=== PATIENT | male | born 1940 | race Caucasian/White ===

== ENCOUNTER → 2018-02-04 08:02 | Outpatient (CLI) | payer MEDICARE, OTHER, SELFPAY ==
[2018-02-04 09:41] LABS: Hemoglobin A1C% w Est Avg Glu 6.3 % (4.0-6.0)
== END ==
PROVIDERS: PCP Family Medicine; Visit Provider Family Medicine
DX: E11.42 Type 2 diabetes mellitus with diabetic polyneuropathy (principal)
CPT/HCPCS: 36415; 83036

== ENCOUNTER → 2018-04-15 07:59 | Outpatient (CLI) | payer MEDICARE, OTHER, SELFPAY ==
[2018-04-15 09:23] LABS: Hemoglobin A1C% w Est Avg Glu 6.8 % (4.0-6.0)
== END ==
PROVIDERS: Family Provider Ophthalmology; PCP Family Medicine; Visit Provider Family Medicine
DX: E11.42 Type 2 diabetes mellitus with diabetic polyneuropathy (principal)
CPT/HCPCS: 36415; 83036

== ENCOUNTER → 2018-07-27 13:12 | Outpatient (CLI) | payer MEDICARE, OTHER, SELFPAY | PROVIDERS: Family Provider Ophthalmology; PCP Family Medicine; Visit Provider Family Medicine | DX: L97.523 Non-pressure chronic ulcer of other part of left foot with necrosis of muscle (principal); E11.621 Type 2 diabetes mellitus with foot ulcer; L08.9 Local infection of the skin and subcutaneous tissue, unspecified | CPT/HCPCS: 11043; 36415; 73630; 80053; 83036; 84134; 85025; 85651; 86140; 87070; 87075; 87205; 99213 ==

== ENCOUNTER → 2018-07-27 14:35 | Outpatient (CLI) | payer MEDICARE, OTHER, SELFPAY ==
--- NOTE | 2018-07-27 | DI.RAD.S_ITS ---
PROCEDURE: XR FOOT LT MIN 3V INDICATIONS: EVAL TECHNIQUE: 3 views of the foot were acquired. COMPARISON: [facility], , FOOT 3V LEFT, 08/19/2014, 16:42. FINDINGS: Bones: There is cortical erosion involving the plantar aspect of fifth metatarsal head is suspicious for osteomyelitis in this area. Osteoarthritic changes without focal joint are noted. Soft tissues: No tibiotalar joint effusion. Achilles tendon appears normal. Ill-defined calcification adjacent to fifth metatarsal head plantar and lateral aspect is seen. Soft tissue swelling over plantar lateral aspect of fifth MTP joint is also seen. IMPRESSION: Findings are concerning for osteomyelitis involving plantar aspect of fifth metatarsal head. No defined soft tissue calcification adjacent to lateral and plantar aspect of fifth metatarsal head, and may represent soft tissue calcification secondary to injury in this area. No radiopaque foreign body is noted. Dictated by: Molina Barrett M.D. on 07/27/2018 at 15:50 Approved by: Molina Barrett M.D. on 07/27/2018 at 15:56
[2018-07-27 15:46] LABS: Add Manual Diff / Slide Review NO; Basophils Percent Auto 0.9 % (0-2); Eosinophils Percent Auto 6.5 % (2-4); Hematocrit 41.8 % (41-53); Hemoglobin 13.8 g/dL (13.5-17.5); Lymphocytes Percent Auto 19.6 % (25-40); Mean Corpuscular HGB Conc 33.1 % (30-36); Mean Corpuscular Hemoglobin 30.1 PG (26-34); Mean Corpuscular Volume 90.9 fL (80-100); Monocytes Percent Auto 10.1 % (3-14); Neutrophils Absolute Auto 5000 /uL (1500-7000); Neutrophils Percent Auto 62.9 % (50-75); Platelet Count 230 X10^3/uL (150-400); Red Cell Distribution Width 13.8 % (11.6-14.8); White Blood Cell Count 7.9 X10^3/uL (4.5-11.0)
[2018-07-27 15:52] LABS: Hemoglobin A1C% w Est Avg Glu 6.5 % (4.0-6.0)
[2018-07-27 16:06] LABS: Alanine Aminotransferase 30 IU/L (21-72); Albumin 4.4 g/dL (3.5-5.0); Albumin Globulin Ratio 1.6 (1.0-2.8); Alkaline Phosphatase 95 U/L (38-126); Aspartate Aminotransferase 21 IU/L (17-59); Bilirubin Total 0.6 mg/dL (0.2-1.3); Blood Urea Nitrogen 27 mg/dL (9-20); C-Reactive Protein Quant 2.9 mg/dL (<1.0); Calcium 9.9 mg/dL (8.4-10.2); Carbon Dioxide 27 mmol/L (22-32); Chloride 102 mmol/L (98-107); Estimated Glomerular Filt Rate > 60.0 mL/min (>60); Globulin 2.8 g/dL (1.7-4.1); Glucose 94 mg/dL (80-110); HEMOLYSIS < 15 (0-50); Potassium 4.7 mmol/L (3.4-5.1); Sodium 142 mmol/L (137-145); Total Protein 7.2 g/dL (6.3-8.2)
[2018-07-27 16:11] LABS: Prealbumin 20.5 mg/dL (17.6-36.0)
[2018-07-27 16:35] LABS: Erythrocyte Sedimentation Rate 17 MM/HR (0-15)
== END ==
PROVIDERS: Family Provider Ophthalmology; PCP Family Medicine; Visit Provider Family Medicine
DX: E11.621 Type 2 diabetes mellitus with foot ulcer (principal)
CPT/HCPCS: 36415; 73630; 80053; 83036; 84134; 85025; 85651; 86140

== ENCOUNTER → 2018-07-30 09:23 | Outpatient (CLI) | payer MEDICARE, OTHER, SELFPAY | PROVIDERS: Family Provider Ophthalmology; PCP Family Medicine; Visit Provider Family Medicine | DX: E11.621 Type 2 diabetes mellitus with foot ulcer (principal); L97.523 Non-pressure chronic ulcer of other part of left foot with necrosis of muscle; L08.9 Local infection of the skin and subcutaneous tissue, unspecified; M86.172 Other acute osteomyelitis, left ankle and foot | CPT/HCPCS: 11043; 99213 ==

== ENCOUNTER → 2018-08-03 08:44 | Outpatient (CLI) | payer MEDICARE, OTHER, SELFPAY | PROVIDERS: Family Provider Ophthalmology; PCP Family Medicine; Visit Provider Family Medicine | DX: E11.621 Type 2 diabetes mellitus with foot ulcer (principal); L97.525 Non-pressure chronic ulcer of other part of left foot with muscle involvement without evidence of necrosis; M86.172 Other acute osteomyelitis, left ankle and foot | CPT/HCPCS: 99213 ==

== ENCOUNTER → 2018-08-10 09:41 | Outpatient (CLI) | payer MEDICARE, OTHER, SELFPAY | PROVIDERS: Family Provider Ophthalmology; PCP Family Medicine; Visit Provider Family Medicine | DX: E11.621 Type 2 diabetes mellitus with foot ulcer (principal); L97.525 Non-pressure chronic ulcer of other part of left foot with muscle involvement without evidence of necrosis | CPT/HCPCS: 11042 ==

== ENCOUNTER → 2018-08-12 14:37 | Outpatient (CLI) | payer MEDICARE, OTHER, SELFPAY | PROVIDERS: Family Provider Ophthalmology; PCP Family Medicine; Visit Provider Family Medicine | DX: E11.621 Type 2 diabetes mellitus with foot ulcer (principal); L97.523 Non-pressure chronic ulcer of other part of left foot with necrosis of muscle | CPT/HCPCS: 11043 ==

== ENCOUNTER → 2018-08-17 08:39 | Outpatient (CLI) | payer MEDICARE, OTHER, SELFPAY | PROVIDERS: Family Provider Ophthalmology; PCP Family Medicine; Visit Provider Podiatrist Primary Podiatric Medicine | DX: E11.621 Type 2 diabetes mellitus with foot ulcer (principal); L97.525 Non-pressure chronic ulcer of other part of left foot with muscle involvement without evidence of necrosis | CPT/HCPCS: 97597 ==

== ENCOUNTER → 2018-08-24 09:31 | Outpatient (CLI) | payer MEDICARE, OTHER, SELFPAY | PROVIDERS: Family Provider Ophthalmology; PCP Family Medicine; Visit Provider Family Medicine | DX: E11.621 Type 2 diabetes mellitus with foot ulcer (principal); L97.525 Non-pressure chronic ulcer of other part of left foot with muscle involvement without evidence of necrosis; L08.9 Local infection of the skin and subcutaneous tissue, unspecified; B96.5 Pseudomonas (aeruginosa) (mallei) (pseudomallei) as the cause of diseases classified elsewhere | CPT/HCPCS: 11043; 87070; 87075; 87205; 99213 ==

== ENCOUNTER → 2018-08-26 07:04 | Outpatient (CLI) | payer MEDICARE, OTHER, SELFPAY ==
--- NOTE | 2018-08-26 | DI.MRI.S_ITS ---
PROCEDURE: MR FOOT LT WO/W CON INDICATIONS: EVALUATE FOR OSTEOMYELITIS LEFT FIFTH METATARSAL TECHNIQUE: Noncontrast coronal T1 spin echo and STIR, sagittal T1 spin echo with fat saturation and STIR, axial T1 spin echo and T2 fast spin echo with fat saturation. After the administration of contrast, axial/sagittal/coronal T1 spin echo with fat saturation through the midfoot and forefoot. COMPARISON: [facility], CR, FOOT 3V LEFT, 08/19/2014, 16:42. [facility], CR, XR FOOT LT MIN 3V, 07/27/2018, 14:46. [facility], MR, FOOT W&WO CONTRAST, 12/30/2016, 16:48. FINDINGS: Image quality: Somewhat degraded by necessity of use of a non-specialized coil T2 cast material precluding smaller [id number] coil technique.. Bones: The visualized bone marrow demonstrates normal signal medially on all sequences but there is elevated fluid signal within the fifth metatarsal head and neck in contrast enhancement that is abnormal within the fifth metatarsal head consistent with osteomyelitis given the soft tissue wound and inflammation lateral to this area. The overlying cortex is not well-visualized by necessity of use of a non-specialized surface coil disallowing small [id number] visualization. No abnormal intraosseous enhancement except at the fifth metatarsal head area best seen laterally. Soft tissues: No soft tissue masses are visualized but there is evidence of cellulitis in the ulceration at the lateral border of the fifth metatarsal area. The scanned muscles demonstrate normal overall bulk and internal signal. Subcutaneous tissues appear normal elsewhere as well. No abnormal soft tissue enhancement except in the area of cutaneous wound lateral aspect of the fifth metatarsal head area. IMPRESSION: An abscess is not seen but there is abnormal edema within and immediately adjacent to the fifth metatarsal head and neck, with associated mid fifth metatarsal head internal enhancement best seen laterally. The findings are highly suggestive of osteomyelitis in an early phase given the overlying soft tissue wound and cutaneous/subcutaneous edema in this area. Prior plain film imaging of the same area is available from 07/27/18. 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 Dictated by: Elmer Ocasio M.D. on 08/26/2018 at 11:01 Approved by: Elmer Ocasio M.D. on 08/26/2018 at 11:24
[2018-08-26 07:36] LABS: Blood Urea Nitrogen 25 mg/dL (9-20); Calcium 9.6 mg/dL (8.4-10.2); Carbon Dioxide 27 mmol/L (22-32); Chloride 104 mmol/L (98-107); Estimated Glomerular Filt Rate > 60.0 mL/min (>60); Glucose 127 mg/dL (80-110); HEMOLYSIS < 15 (0-50); Potassium 4.7 mmol/L (3.4-5.1); Sodium 139 mmol/L (137-145)
[2018-08-26 07:39] LABS: C-Reactive Protein Quant < 0.5 mg/dL (<1.0)
[2018-08-26 08:26] LABS: Erythrocyte Sedimentation Rate 5 MM/HR (0-15)
== END ==
PROVIDERS: Family Provider Ophthalmology; PCP Family Medicine; Visit Provider Family Medicine
DX: E11.621 Type 2 diabetes mellitus with foot ulcer (principal); L97.524 Non-pressure chronic ulcer of other part of left foot with necrosis of bone
CPT/HCPCS: 36415; 73720; 80048; 85651; 86140

== ENCOUNTER → 2018-08-31 14:38 | Outpatient (CLI) | payer MEDICARE, OTHER, SELFPAY | PROVIDERS: Family Provider Ophthalmology; PCP Family Medicine; Visit Provider Family Medicine | DX: E11.621 Type 2 diabetes mellitus with foot ulcer (principal); L97.525 Non-pressure chronic ulcer of other part of left foot with muscle involvement without evidence of necrosis; E11.40 Type 2 diabetes mellitus with diabetic neuropathy, unspecified; M86.172 Other acute osteomyelitis, left ankle and foot | CPT/HCPCS: 11042; 99213 ==

== ENCOUNTER → 2018-08-31 15:25 | Outpatient (CLI) | payer MEDICARE, OTHER, SELFPAY ==
--- NOTE | 2018-08-31 15:28 | DI.RAD.S_ITS ---
PROCEDURE: XR FOOT LT MIN 3V INDICATIONS: INFECTION OF SKIN TECHNIQUE: 3 views of the foot were acquired. COMPARISON: [facility], MR, MR FOOT LT WO/W CON, 08/26/2018, 7:35. [facility], CR, XR FOOT LT MIN 3V, 07/27/2018, 14:46. [facility], CR, FOOT 3V LEFT, 08/19/2014, 16:42. FINDINGS: Bones: No fractures or dislocations. There is suspicious ostiolysis involving the lateral border of the fifth metatarsal head corresponding to the area of the abnormal contrast enhancement on recent MR scanning performed 08/26/18. The current findings are, in my opinion, suspicious for confirmation of presence of osteomyelitis.. Soft tissues: No tibiotalar joint effusion. Achilles tendon appears normal. IMPRESSION: Please also refer to the report from recent prior MR scanning 08/26/18. It is highly likely based on the imaging findings of that study and the current examination showing lateral ostiolysis to a mild degree involving the fifth metatarsal head that osteomyelitis is currently present in that area. Dictated by: Elmer Ocasio M.D. on 08/31/2018 at 16:05 Approved by: Elmer Ocasio M.D. on 08/31/2018 at 16:07
== END ==
PROVIDERS: PCP Family Medicine; Visit Provider Family Medicine
DX: E11.621 Type 2 diabetes mellitus with foot ulcer (principal); L97.524 Non-pressure chronic ulcer of other part of left foot with necrosis of bone; L08.9 Local infection of the skin and subcutaneous tissue, unspecified
CPT/HCPCS: 11042; 73630

== ENCOUNTER → 2018-09-07 09:59 | Outpatient (CLI) | payer MEDICARE, OTHER, SELFPAY | PROVIDERS: PCP Family Medicine; Visit Provider Family Medicine | DX: E11.621 Type 2 diabetes mellitus with foot ulcer (principal); L97.524 Non-pressure chronic ulcer of other part of left foot with necrosis of bone; M86.172 Other acute osteomyelitis, left ankle and foot | CPT/HCPCS: 11042; 87070; 87075; 87077; 87147; 87186; 87205 ==

== ENCOUNTER → 2018-09-14 08:29 | Outpatient (CLI) | payer MEDICARE, OTHER, SELFPAY | PROVIDERS: PCP Family Medicine; Visit Provider Family Medicine | DX: E11.621 Type 2 diabetes mellitus with foot ulcer (principal); L97.525 Non-pressure chronic ulcer of other part of left foot with muscle involvement without evidence of necrosis; M86.172 Other acute osteomyelitis, left ankle and foot | CPT/HCPCS: 11042; 93922 ==

== ENCOUNTER → 2018-09-21 08:49 | Outpatient (CLI) | payer MEDICARE, OTHER, SELFPAY | PROVIDERS: PCP Family Medicine; Visit Provider Family Medicine | DX: E11.621 Type 2 diabetes mellitus with foot ulcer (principal); L97.525 Non-pressure chronic ulcer of other part of left foot with muscle involvement without evidence of necrosis; M86.172 Other acute osteomyelitis, left ankle and foot | CPT/HCPCS: 11042 ==

== ENCOUNTER → 2018-09-28 09:11 | Outpatient (CLI) | payer MEDICARE, OTHER, SELFPAY ==
[2018-09-28 11:45] LABS: Erythrocyte Sedimentation Rate 5 MM/HR (0-15)
[2018-09-28 11:53] LABS: C-Reactive Protein Quant < 0.5 mg/dL (<1.0)
== END ==
PROVIDERS: PCP Family Medicine; Visit Provider Family Medicine
DX: E11.621 Type 2 diabetes mellitus with foot ulcer (principal); L97.525 Non-pressure chronic ulcer of other part of left foot with muscle involvement without evidence of necrosis; M86.172 Other acute osteomyelitis, left ankle and foot
CPT/HCPCS: 11042; 36415; 85651; 86140

== ENCOUNTER → 2018-10-05 08:41 | Outpatient (CLI) | payer MEDICARE, OTHER, SELFPAY | PROVIDERS: PCP Family Medicine; Visit Provider Family Medicine | DX: E11.621 Type 2 diabetes mellitus with foot ulcer (principal); L97.524 Non-pressure chronic ulcer of other part of left foot with necrosis of bone; M86.172 Other acute osteomyelitis, left ankle and foot | CPT/HCPCS: 11044; 87070; 87075; 87077; 87147; 87186; 87205 ==

== ENCOUNTER → 2018-10-12 14:28 | Outpatient (CLI) | payer MEDICARE, OTHER, SELFPAY | PROVIDERS: PCP Family Medicine; Visit Provider Family Medicine | DX: E11.621 Type 2 diabetes mellitus with foot ulcer (principal); L97.524 Non-pressure chronic ulcer of other part of left foot with necrosis of bone; M86.672 Other chronic osteomyelitis, left ankle and foot; B95.7 Other staphylococcus as the cause of diseases classified elsewhere | CPT/HCPCS: 11042; 99214 ==

== ENCOUNTER → 2018-10-19 08:22 | Outpatient (CLI) | payer MEDICARE, OTHER, SELFPAY | PROVIDERS: PCP Family Medicine; Visit Provider Family Medicine | DX: E11.621 Type 2 diabetes mellitus with foot ulcer (principal); L97.526 Non-pressure chronic ulcer of other part of left foot with bone involvement without evidence of necrosis; M86.672 Other chronic osteomyelitis, left ankle and foot; B95.7 Other staphylococcus as the cause of diseases classified elsewhere | CPT/HCPCS: 11042 ==

== ENCOUNTER → 2018-10-26 08:34 | Outpatient (CLI) | payer MEDICARE, OTHER, SELFPAY | PROVIDERS: PCP Family Medicine; Visit Provider Family Medicine | DX: E11.621 Type 2 diabetes mellitus with foot ulcer (principal); L97.524 Non-pressure chronic ulcer of other part of left foot with necrosis of bone; M86.672 Other chronic osteomyelitis, left ankle and foot; B95.7 Other staphylococcus as the cause of diseases classified elsewhere | CPT/HCPCS: 11043 ==

== ENCOUNTER → 2018-11-02 08:49 | Outpatient (CLI) | payer MEDICARE, OTHER, SELFPAY | PROVIDERS: PCP Family Medicine; Visit Provider Family Medicine | DX: E11.621 Type 2 diabetes mellitus with foot ulcer (principal); L97.526 Non-pressure chronic ulcer of other part of left foot with bone involvement without evidence of necrosis; M86.672 Other chronic osteomyelitis, left ankle and foot; B95.7 Other staphylococcus as the cause of diseases classified elsewhere | CPT/HCPCS: 11043 ==

== ENCOUNTER → 2018-11-05 12:06 | Outpatient (CLI) | payer MEDICARE, OTHER, SELFPAY ==
[2018-11-05 15:33] LABS: BUN Creatinine Ratio 23.6 (6-22); Blood Urea Nitrogen 26 mg/dL (9-20); Calcium 9.5 mg/dL (8.4-10.2); Carbon Dioxide 24 mmol/L (22-32); Chloride 102 mmol/L (98-107); Estimated Glomerular Filt Rate > 60.0 mL/min (>60); Glucose 76 mg/dL (80-110); HEMOLYSIS 29 (0-50); Potassium 4.8 mmol/L (3.4-5.1); Sodium 137 mmol/L (137-145)
== END ==
PROVIDERS: PCP Family Medicine; Visit Provider Family Medicine
DX: L08.9 Local infection of the skin and subcutaneous tissue, unspecified (principal)
CPT/HCPCS: 36415; 80048

== ENCOUNTER → 2018-11-10 08:37 | Outpatient (CLI) | payer MEDICARE, OTHER, SELFPAY | PROVIDERS: PCP Family Medicine; Visit Provider Family Medicine | DX: E11.621 Type 2 diabetes mellitus with foot ulcer (principal); L97.526 Non-pressure chronic ulcer of other part of left foot with bone involvement without evidence of necrosis; B95.7 Other staphylococcus as the cause of diseases classified elsewhere; M86.672 Other chronic osteomyelitis, left ankle and foot | CPT/HCPCS: 11042; 99214 ==

== ENCOUNTER → 2018-11-17 08:53 | Outpatient (CLI) | payer MEDICARE, OTHER, SELFPAY | PROVIDERS: PCP Family Medicine; Visit Provider Family Medicine | DX: E11.621 Type 2 diabetes mellitus with foot ulcer (principal); E11.40 Type 2 diabetes mellitus with diabetic neuropathy, unspecified; L97.525 Non-pressure chronic ulcer of other part of left foot with muscle involvement without evidence of necrosis; M86.672 Other chronic osteomyelitis, left ankle and foot; B95.7 Other staphylococcus as the cause of diseases classified elsewhere | CPT/HCPCS: 11042 ==

== ENCOUNTER → 2018-11-18 09:25 | Outpatient (CLI) | payer MEDICARE, OTHER, SELFPAY ==
--- NOTE | 2018-11-18 09:31 | DI.RAD.S_ITS ---
PROCEDURE: XR CHEST 2V INDICATIONS: PRE-HYPERBARIC TREATMENT. EVAL FOR BLUB. TECHNIQUE: 2 views of the chest were acquired. COMPARISON: None. FINDINGS: Surgical changes and devices: None. Lungs and pleura: Lungs are clear. No pleural effusions or pneumothorax. Mediastinum: Mediastinal contours are normal. Heart size is normal. Bones and chest wall: No suspicious bony abnormalities. Soft tissues appear unremarkable. IMPRESSION: No acute disease Dictated by: Prashant Knox M.D. on 11/18/2018 at 12:29 Approved by: Prashant Knox M.D. on 11/18/2018 at 12:30
[2018-11-18 11:14] LABS: Cholesterol 184 mg/dL (140-199); HDL Cholesterol 45 mg/dL (40-60); LDL Cholesterol Calculated 118 mg/dL (<100); Magnesium 1.8 mg/dL (1.6-2.3); Triglycerides 103 mg/dL (35-150)
[2018-11-18 11:44] LABS: Thyroid Stimulating Hormone 0.99 uIU/mL (0.47-4.68)
== END ==
PROVIDERS: PCP Family Medicine; Referring Provider Family Medicine; Visit Provider Internal Medicine Cardiovascular Disease
DX: E11.621 Type 2 diabetes mellitus with foot ulcer (principal); E78.2 Mixed hyperlipidemia; I48.1 Persistent atrial fibrillation
CPT/HCPCS: 36415; 71046; 80061; 83735; 84443

== ENCOUNTER → 2018-11-24 09:05 | Outpatient (CLI) | payer MEDICARE, OTHER, SELFPAY | PROVIDERS: PCP Family Medicine; Visit Provider Family Medicine | DX: E11.621 Type 2 diabetes mellitus with foot ulcer (principal); L97.526 Non-pressure chronic ulcer of other part of left foot with bone involvement without evidence of necrosis; M86.672 Other chronic osteomyelitis, left ankle and foot; B95.7 Other staphylococcus as the cause of diseases classified elsewhere | CPT/HCPCS: 11042 ==

== ENCOUNTER → 2018-12-01 08:54 | Outpatient (CLI) | payer MEDICARE, OTHER, SELFPAY | PROVIDERS: PCP Family Medicine; Visit Provider Family Medicine | DX: E11.621 Type 2 diabetes mellitus with foot ulcer (principal); L97.526 Non-pressure chronic ulcer of other part of left foot with bone involvement without evidence of necrosis; M86.672 Other chronic osteomyelitis, left ankle and foot; B95.7 Other staphylococcus as the cause of diseases classified elsewhere | CPT/HCPCS: 99213 ==

== ENCOUNTER → 2018-12-03 10:44 | Outpatient (CLI) | payer MEDICARE, OTHER, SELFPAY | PROVIDERS: PCP Family Medicine; Visit Provider Family Medicine | DX: E11.621 Type 2 diabetes mellitus with foot ulcer (principal); L97.526 Non-pressure chronic ulcer of other part of left foot with bone involvement without evidence of necrosis | CPT/HCPCS: 99183; G0277 ==

== ENCOUNTER → 2018-12-04 14:54 | Outpatient (CLI) | payer MEDICARE, OTHER, SELFPAY | PROVIDERS: PCP Family Medicine; Visit Provider Family Medicine | DX: E11.621 Type 2 diabetes mellitus with foot ulcer (principal); L97.524 Non-pressure chronic ulcer of other part of left foot with necrosis of bone; M86.672 Other chronic osteomyelitis, left ankle and foot | CPT/HCPCS: 99183; G0277 ==

== ENCOUNTER → 2018-12-07 13:41 | Outpatient (CLI) | payer MEDICARE, OTHER, SELFPAY | PROVIDERS: PCP Family Medicine; Visit Provider Family Medicine | DX: E11.621 Type 2 diabetes mellitus with foot ulcer (principal); L97.524 Non-pressure chronic ulcer of other part of left foot with necrosis of bone; M86.672 Other chronic osteomyelitis, left ankle and foot | CPT/HCPCS: 99183; G0277 ==

== ENCOUNTER → 2018-12-08 08:51 | Outpatient (CLI) | payer MEDICARE, OTHER, SELFPAY ==
--- NOTE | 2018-12-08 | DI.RAD.S_ITS ---
PROCEDURE: XR FOOT LT MIN 3V INDICATIONS: ,OSTEOMYELITIS TECHNIQUE: 3 views of the foot were acquired. COMPARISON: [facility], CR, XR FOOT LT MIN 3V, 07/27/2018, 14:46. [facility], MR, MR FOOT LT WO/W CON, 08/26/2018, 7:35. [facility], CR, XR FOOT LT MIN 3V, 08/31/2018, 15:31. FINDINGS: Severe subluxed appearance/dislocation of the fifth MTP joint. No fracture identified. There is overlying soft tissue swelling. There is mild cortical lucency and irregularity although this appears grossly unchanged to mildly improved in bony mineralization since 08/31/18. Diffuse interphalangeal joint degeneration. First MTP osteoarthritis. Posterior calcaneal spurring. Diffuse hindfoot and midfoot degenerative spurring and sclerosis. IMPRESSION: No definite further progression in lytic bone destruction of the fifth metatarsal head. There is suggestion of increasing bone mineralization, and improved cortical definition since the prior study. Overlying soft tissue swelling. Severe subluxation/dislocation of the fifth MTP joint. Dictated by: Prashant Knox M.D. on 12/08/2018 at 15:28 Approved by: Prashant Knox M.D. on 12/08/2018 at 15:32
--- NOTE | 2018-12-08 | DI.ECHO.S_ITS ---
[facility]---------+ [facility] +---------+ : : [address] : : : : [id number] : : : : Phone: [phone]+ Echocardiogram Report + + :Name: EFREN KELLER Study Date: 12/08/2018 Height: 76 in : [facility] Weight: 243 lb : : Gender: Male BSA: 2.4 m2 : :: 1940 Age: 78 yrs BP: 135/80 mmHg: :Reason For Study: Atrial fibrillation : :Ordering Physician: Aleksandra : :Balwinder Performed By: Kimber Page : + + Interpretation Summary The left ventricle is normal in size. The ejection fraction is estimated to be 50-55%. The right ventricle is mildly dilated. Right ventricular systolic function is at the lower limits of normal. There is mild tricuspid regurgitation. Compared to the prior echo exam, there has been no change in TR severity. The right ventricular systolic pressure is estimated to be at least 33 mmHg based on an estimated right atrial pressure of 3 mm Hg. The ascending aorta is mildly enlarged. 3.7 cm in diameter. In August 2014 it was about 3.5 cm. The patient was in atrial fibrillation with heart rates between 64-90 bpm during the exam. In comparison to previous study, atrial for ablation has replaced sinus rhythm. Procedure: A two-dimensional transthoracic echocardiogram with color flow and Doppler was performed. The study quality was technically adequate. Comparison is made with the echocardiogram of 08/31/2014. The patient was in atrial fibrillation with heart rates between 64-90 bpm during the exam. Left Ventricle: The left ventricle is normal in size. Left ventricular wall thickness is borderline increased. There is no thrombus. The ejection fraction is estimated to be 50-55%. Septal motion is consistent with conduction abnormality. Diastolic function could not be accurately assessed due to atrial fibrillation. Right Ventricle: The right ventricle is mildly dilated. Right ventricular systolic function is at the lower limits of normal. Atria: Both atria are severely dilated. Both atria have significantly increased in size since the prior echo exam. There is no Doppler evidence for an interatrial shunt. Mitral Valve: There is mild mitral annular calcification. There is mild mitral regurgitation. Aortic Valve: The aortic valve is trileaflet. The aortic valve opens well. The aortic valve is slightly calcified. There is no aortic valve stenosis. There is trace aortic regurgitation. Tricuspid Valve: The tricuspid valve is normal. There is mild tricuspid regurgitation. The right ventricular systolic pressure is estimated to be at least 33 mmHg based on an estimated right atrial pressure of 3 mm Hg. Compared to the prior echo exam, there has been no change in TR severity. Pulmonic Valve: The pulmonic valve is not well visualized. There is trace pulmonic regurgitation. Great Vessels: The aortic root is normal size. The ascending aorta is mildly enlarged. The pulmonary artery is not well visualized, but is probably normal size. The IVC is of normal diameter and collapses greater than 50% with a sniff. This suggests a low right atrial pressure of 3 mm Hg. Pericardium/ Pleura There is no pericardial effusion. There is no pleural effusion. MMode/2D Measurements & Calculations LVIDd: 5.2 cm LVOT diam: 2.5 cm LVIDs: 3.7 cm Ao root diam: 3.6 cm FS: 29.5 % asc Aorta Diam: 3.7 cm EPSS: 0.60 cm IVSd: 1.1 cm LVPWd: 0.99 cm LV alfonso. diameter/BSA (cm/m^2): 2.2 LV sys. diameter/BSA (cm/m^2): 1.5 LA A2 area: 33.8 cm2 RA long axis: 6.9 cm LA A4 area: 41.3 cm2 RA area: 32.3 cm2 LA length (vol): 8.1 cm RA vol: 128.2 ml LA vol: 147.0 ml RA : 53.3 ml/m2 LA vol index: 61.1 ml/m2 IVC diam: 1.5 cm RVD1 (basal): 5.4 cm RVD2 (mid): 4.5 cm Doppler Measurements & Calculations Ao V2 max: 127.9 cm/sec LVOT Max Nhan: 53.0 cm/sec Ao V2 mean: 93.5 cm/sec LV V1 max P.1 mmHg Ao max P.6 mmHg LV V1 VTI: 10.3 cm Ao mean P.8 mmHg DI(I,D): 1.9 cm2 Ao V2 VTI: 26.5 cm DI(V,D): 2.0 cm2 sev ratio: 0.39 DI indexed to BSA (cm^2/m^2): 0.78 MV E max nhan: 89.8 cm/sec TR max nhan: 273.5 cm/sec Med Peak E' Nhan: 6.7 cm/sec TR max P.9 mmHg E/E' med: 13.4 PA V2 max: 39.3 cm/sec Lat Peak E' Nhan: 11.0 cm/sec PA V2 mean: 25.3 cm/sec E/E' lat: 8.2 PA mean P.29 mmHg E/e' average: 10.8 PA Accel Time: 0.05 sec MV P1/2t: 48.3 msec MV P1/2t max nhan: 90.4 cm/sec SV(LVOT): 49.8 ml MVA(P1/2t): 4.6 cm2 Reading Physician:KATIANA
[2018-12-08 15:54] LABS: Add Manual Diff / Slide Review NO; Basophils Absolute Auto 0 /uL (0-100); Basophils Percent Auto 0.8 % (0-2); Eosinophils Absolute Auto 300 /uL (0-450); Eosinophils Percent Auto 5.3 % (2-4); Hematocrit 40.6 % (41-53); Hemoglobin 13.4 g/dL (13.5-17.5); Lymphocytes Absolute Auto 1600 /uL (1100-4500); Lymphocytes Percent Auto 25.4 % (25-40); Mean Corpuscular Hemoglobin 29.9 PG (26-34); Mean Corpuscular Volume 90.6 fL (80-100); Monocytes Absolute Auto 600 /uL (0-900); Monocytes Percent Auto 9.2 % (3-14); Neutrophils Absolute Auto 3700 /uL (1500-7000); Neutrophils Percent Auto 59.3 % (50-75); Platelet Count 221 X10^3/uL (150-400); Red Blood Cell Count 4.48 X10^6/uL (4.5-5.9); Red Cell Distribution Width 14.9 % (11.6-14.8); White Blood Cell Count 6.2 X10^3/uL (4.5-11.0)
[2018-12-08 16:17] LABS: Alanine Aminotransferase 24 IU/L (21-72); Albumin 4.3 g/dL (3.5-5.0); Albumin Globulin Ratio 1.7 (1.0-2.8); Alkaline Phosphatase 83 U/L (38-126); Aspartate Aminotransferase 21 IU/L (17-59); Bilirubin Total 0.5 mg/dL (0.2-1.3); Blood Urea Nitrogen 24 mg/dL (9-20); C-Reactive Protein Quant 0.6 mg/dL (<1.0); Calcium 9.7 mg/dL (8.4-10.2); Carbon Dioxide 25 mmol/L (22-32); Chloride 105 mmol/L (98-107); Estimated Glomerular Filt Rate > 60.0 mL/min (>60); Globulin 2.6 g/dL (1.7-4.1); Glucose 96 mg/dL (80-110); HEMOLYSIS < 15 (0-50); Potassium 4.8 mmol/L (3.4-5.1); Sodium 139 mmol/L (137-145); Total Protein 6.9 g/dL (6.3-8.2)
[2018-12-08 17:25] LABS: Erythrocyte Sedimentation Rate 11 MM/HR (0-15)
== END ==
PROVIDERS: Family Provider Family Medicine; PCP Family Medicine; Visit Provider Internal Medicine Cardiovascular Disease
DX: I08.1 Rheumatic disorders of both mitral and tricuspid valves (principal); I48.1 Persistent atrial fibrillation; I77.89 Other specified disorders of arteries and arterioles; M86.672 Other chronic osteomyelitis, left ankle and foot; S93.145A Subluxation of metatarsophalangeal joint of left lesser toe(s), initial encounter; E11.621 Type 2 diabetes mellitus with foot ulcer; L97.524 Non-pressure chronic ulcer of other part of left foot with necrosis of bone
CPT/HCPCS: 36415; 73630; 80053; 85025; 85651; 86140; 93306; 97597; G0277

== ENCOUNTER → 2018-12-08 11:30 | Outpatient (CLI) | payer MEDICARE, OTHER, SELFPAY | PROVIDERS: PCP Family Medicine; Visit Provider Family Medicine | DX: E11.621 Type 2 diabetes mellitus with foot ulcer (principal); L97.526 Non-pressure chronic ulcer of other part of left foot with bone involvement without evidence of necrosis; M86.672 Other chronic osteomyelitis, left ankle and foot; B95.7 Other staphylococcus as the cause of diseases classified elsewhere | CPT/HCPCS: 97597; 99183; G0277 ==

== ENCOUNTER → 2018-12-09 12:14 | Outpatient (CLI) | payer MEDICARE, OTHER, SELFPAY | PROVIDERS: PCP Family Medicine; Visit Provider Family Medicine | DX: M86.672 Other chronic osteomyelitis, left ankle and foot (principal) | CPT/HCPCS: 99183; G0277 ==

== ENCOUNTER → 2018-12-10 13:05 | Outpatient (CLI) | payer MEDICARE, OTHER, SELFPAY | PROVIDERS: PCP Family Medicine; Visit Provider Family Medicine | DX: M86.672 Other chronic osteomyelitis, left ankle and foot (principal) | CPT/HCPCS: 99183; G0277 ==

== ENCOUNTER → 2018-12-11 13:19 | Outpatient (CLI) | payer MEDICARE, OTHER, SELFPAY | PROVIDERS: PCP Family Medicine; Visit Provider Family Medicine | DX: E11.621 Type 2 diabetes mellitus with foot ulcer (principal); L97.524 Non-pressure chronic ulcer of other part of left foot with necrosis of bone; M86.672 Other chronic osteomyelitis, left ankle and foot | CPT/HCPCS: 99183; G0277 ==

== ENCOUNTER → 2018-12-15 08:50 | Outpatient (CLI) | payer MEDICARE, OTHER, SELFPAY | PROVIDERS: PCP Family Medicine; Visit Provider Family Medicine | DX: E11.621 Type 2 diabetes mellitus with foot ulcer (principal); L97.526 Non-pressure chronic ulcer of other part of left foot with bone involvement without evidence of necrosis; M86.672 Other chronic osteomyelitis, left ankle and foot | CPT/HCPCS: 97597; 99183; G0277 ==

== ENCOUNTER → 2018-12-16 09:03 | Outpatient (CLI) | payer MEDICARE, OTHER, SELFPAY | PROVIDERS: PCP Family Medicine; Visit Provider Family Medicine | DX: E11.621 Type 2 diabetes mellitus with foot ulcer (principal); L97.524 Non-pressure chronic ulcer of other part of left foot with necrosis of bone; M86.672 Other chronic osteomyelitis, left ankle and foot | CPT/HCPCS: 99183; G0277 ==

== ENCOUNTER → 2018-12-17 08:32 | Outpatient (CLI) | payer MEDICARE, OTHER, SELFPAY | PROVIDERS: PCP Family Medicine; Visit Provider Family Medicine | DX: E11.621 Type 2 diabetes mellitus with foot ulcer (principal); L97.524 Non-pressure chronic ulcer of other part of left foot with necrosis of bone; M86.672 Other chronic osteomyelitis, left ankle and foot | CPT/HCPCS: 99183; G0277 ==

== ENCOUNTER → 2018-12-18 13:02 | Outpatient (CLI) | payer MEDICARE, OTHER, SELFPAY | PROVIDERS: PCP Family Medicine; Visit Provider Family Medicine | DX: E11.621 Type 2 diabetes mellitus with foot ulcer (principal); L97.524 Non-pressure chronic ulcer of other part of left foot with necrosis of bone; M86.672 Other chronic osteomyelitis, left ankle and foot | CPT/HCPCS: 99183; G0277 ==

== ENCOUNTER → 2018-12-21 08:53 | Outpatient (CLI) | payer MEDICARE, OTHER, SELFPAY | PROVIDERS: PCP Family Medicine; Visit Provider Family Medicine | DX: E11.621 Type 2 diabetes mellitus with foot ulcer (principal); L97.524 Non-pressure chronic ulcer of other part of left foot with necrosis of bone; M86.672 Other chronic osteomyelitis, left ankle and foot | CPT/HCPCS: 99183; G0277 ==

== ENCOUNTER → 2018-12-22 10:14 | Outpatient (CLI) | payer MEDICARE, OTHER, SELFPAY | PROVIDERS: PCP Family Medicine; Visit Provider Family Medicine | DX: E11.621 Type 2 diabetes mellitus with foot ulcer (principal); L97.524 Non-pressure chronic ulcer of other part of left foot with necrosis of bone; M86.672 Other chronic osteomyelitis, left ankle and foot | CPT/HCPCS: 11042; 99183; G0277 ==

== ENCOUNTER → 2018-12-24 11:01 | Outpatient (CLI) | payer MEDICARE, OTHER, SELFPAY | PROVIDERS: PCP Family Medicine; Visit Provider Family Medicine | DX: E11.621 Type 2 diabetes mellitus with foot ulcer (principal); L97.524 Non-pressure chronic ulcer of other part of left foot with necrosis of bone; M86.672 Other chronic osteomyelitis, left ankle and foot | CPT/HCPCS: 99183; G0277 ==

== ENCOUNTER → 2018-12-25 08:31 | Outpatient (CLI) | payer MEDICARE, OTHER, SELFPAY | PROVIDERS: PCP Family Medicine; Visit Provider Family Medicine | DX: E11.621 Type 2 diabetes mellitus with foot ulcer (principal); L97.524 Non-pressure chronic ulcer of other part of left foot with necrosis of bone; M86.672 Other chronic osteomyelitis, left ankle and foot | CPT/HCPCS: 99183; G0277 ==

== ENCOUNTER → 2018-12-29 09:36 | Outpatient (CLI) | payer MEDICARE, OTHER, SELFPAY | PROVIDERS: PCP Family Medicine; Visit Provider Family Medicine | DX: E11.621 Type 2 diabetes mellitus with foot ulcer (principal); L97.524 Non-pressure chronic ulcer of other part of left foot with necrosis of bone; M86.672 Other chronic osteomyelitis, left ankle and foot | CPT/HCPCS: 99183; G0277 ==

== ENCOUNTER → 2018-12-30 09:56 | Outpatient (CLI) | payer MEDICARE, OTHER, SELFPAY | PROVIDERS: PCP Family Medicine; Visit Provider Family Medicine | DX: E11.621 Type 2 diabetes mellitus with foot ulcer (principal); L97.524 Non-pressure chronic ulcer of other part of left foot with necrosis of bone; M86.672 Other chronic osteomyelitis, left ankle and foot | CPT/HCPCS: 15275; 99183; 99212; 99213; G0277; Q4132 ==

== ENCOUNTER → 2018-12-31 15:04 | Outpatient (CLI) | payer MEDICARE, OTHER, SELFPAY | PROVIDERS: PCP Family Medicine; Visit Provider Family Medicine | DX: E11.621 Type 2 diabetes mellitus with foot ulcer (principal); L97.524 Non-pressure chronic ulcer of other part of left foot with necrosis of bone; M86.672 Other chronic osteomyelitis, left ankle and foot | CPT/HCPCS: 99183; G0277 ==

== ENCOUNTER → 2019-01-01 09:58 | Outpatient (CLI) | payer MEDICARE, OTHER, SELFPAY | PROVIDERS: PCP Family Medicine; Visit Provider Family Medicine | DX: E11.621 Type 2 diabetes mellitus with foot ulcer (principal); L97.524 Non-pressure chronic ulcer of other part of left foot with necrosis of bone; M86.672 Other chronic osteomyelitis, left ankle and foot | CPT/HCPCS: 99183; G0277 ==

== ENCOUNTER → 2019-01-04 09:09 | Outpatient (CLI) | payer MEDICARE, OTHER, SELFPAY | PROVIDERS: PCP Family Medicine; Visit Provider Family Medicine | DX: E11.621 Type 2 diabetes mellitus with foot ulcer (principal); L97.524 Non-pressure chronic ulcer of other part of left foot with necrosis of bone; M86.672 Other chronic osteomyelitis, left ankle and foot | CPT/HCPCS: 99183; G0277 ==

== ENCOUNTER → 2019-01-05 08:43 | Outpatient (CLI) | payer MEDICARE, OTHER, SELFPAY | PROVIDERS: PCP Family Medicine; Visit Provider Family Medicine | DX: E11.621 Type 2 diabetes mellitus with foot ulcer (principal); L97.524 Non-pressure chronic ulcer of other part of left foot with necrosis of bone; M86.672 Other chronic osteomyelitis, left ankle and foot | CPT/HCPCS: 11042; 99183; 99214; G0277 ==

== ENCOUNTER → 2019-01-06 06:51 | Outpatient (CLI) | payer MEDICARE, OTHER, SELFPAY ==
[2019-01-06 09:24] LABS: BUN Creatinine Ratio 21.7 (6-22); Blood Urea Nitrogen 26 mg/dL (9-20); Calcium 9.3 mg/dL (8.4-10.2); Carbon Dioxide 26 mmol/L (22-32); Chloride 106 mmol/L (98-107); Estimated Glomerular Filt Rate 58.9 mL/min (>60); Glucose 117 mg/dL (80-110); HEMOLYSIS < 15 (0-50); Potassium 5.1 mmol/L (3.4-5.1); Sodium 141 mmol/L (137-145)
[2019-01-06 09:28] LABS: C-Reactive Protein Quant < 0.5 mg/dL (<1.0)
[2019-01-06 09:44] LABS: Erythrocyte Sedimentation Rate 10 MM/HR (0-15)
== END ==
PROVIDERS: PCP Family Medicine; Visit Provider Family Medicine
DX: E11.621 Type 2 diabetes mellitus with foot ulcer (principal); L97.524 Non-pressure chronic ulcer of other part of left foot with necrosis of bone; M86.672 Other chronic osteomyelitis, left ankle and foot
CPT/HCPCS: 36415; 80048; 85651; 86140

== ENCOUNTER → 2019-01-06 08:42 | Outpatient (CLI) | payer MEDICARE, OTHER, SELFPAY | PROVIDERS: PCP Family Medicine; Visit Provider Family Medicine | DX: E11.621 Type 2 diabetes mellitus with foot ulcer (principal); L97.524 Non-pressure chronic ulcer of other part of left foot with necrosis of bone; M86.672 Other chronic osteomyelitis, left ankle and foot | CPT/HCPCS: 99183; G0277 ==

== ENCOUNTER → 2019-01-07 09:23 | Outpatient (CLI) | payer MEDICARE, OTHER, SELFPAY | PROVIDERS: PCP Family Medicine; Visit Provider Family Medicine | DX: E11.621 Type 2 diabetes mellitus with foot ulcer (principal); L97.524 Non-pressure chronic ulcer of other part of left foot with necrosis of bone; M86.672 Other chronic osteomyelitis, left ankle and foot | CPT/HCPCS: 99183; G0277 ==

== ENCOUNTER → 2019-01-08 08:43 | Outpatient (CLI) | payer MEDICARE, OTHER, SELFPAY | PROVIDERS: PCP Family Medicine; Visit Provider Family Medicine | DX: E11.621 Type 2 diabetes mellitus with foot ulcer (principal); L97.524 Non-pressure chronic ulcer of other part of left foot with necrosis of bone; M86.672 Other chronic osteomyelitis, left ankle and foot | CPT/HCPCS: 99183; G0277 ==

== ENCOUNTER → 2019-01-11 15:18 | Outpatient (CLI) | payer MEDICARE, OTHER, SELFPAY | PROVIDERS: PCP Family Medicine; Visit Provider Family Medicine | DX: E11.621 Type 2 diabetes mellitus with foot ulcer (principal); L97.524 Non-pressure chronic ulcer of other part of left foot with necrosis of bone; M86.672 Other chronic osteomyelitis, left ankle and foot | CPT/HCPCS: 99183; G0277 ==

== ENCOUNTER → 2019-01-12 09:27 | Outpatient (CLI) | payer MEDICARE, OTHER, SELFPAY | PROVIDERS: PCP Family Medicine; Visit Provider Family Medicine | DX: E11.621 Type 2 diabetes mellitus with foot ulcer (principal); L97.524 Non-pressure chronic ulcer of other part of left foot with necrosis of bone; M86.672 Other chronic osteomyelitis, left ankle and foot | CPT/HCPCS: 15271; 99183; G0277; Q4132 ==

== ENCOUNTER → 2019-01-13 09:01 | Outpatient (CLI) | payer MEDICARE, OTHER, SELFPAY | PROVIDERS: PCP Family Medicine; Visit Provider Family Medicine | DX: M86.672 Other chronic osteomyelitis, left ankle and foot (principal); E11.621 Type 2 diabetes mellitus with foot ulcer; L97.521 Non-pressure chronic ulcer of other part of left foot limited to breakdown of skin | CPT/HCPCS: 99183; G0277 ==

== ENCOUNTER → 2019-01-14 10:19 | Outpatient (CLI) | payer MEDICARE, OTHER, SELFPAY | PROVIDERS: PCP Family Medicine; Visit Provider Family Medicine | DX: E11.621 Type 2 diabetes mellitus with foot ulcer (principal); L97.521 Non-pressure chronic ulcer of other part of left foot limited to breakdown of skin; M86.672 Other chronic osteomyelitis, left ankle and foot | CPT/HCPCS: 99183; G0277 ==

== ENCOUNTER → 2019-01-15 09:04 | Outpatient (CLI) | payer MEDICARE, OTHER, SELFPAY | PROVIDERS: PCP Family Medicine; Visit Provider Family Medicine | DX: M86.672 Other chronic osteomyelitis, left ankle and foot (principal); E11.621 Type 2 diabetes mellitus with foot ulcer; L97.521 Non-pressure chronic ulcer of other part of left foot limited to breakdown of skin | CPT/HCPCS: 99183; G0277 ==

== ENCOUNTER → 2019-01-19 11:48 | Outpatient (CLI) | payer MEDICARE, OTHER, SELFPAY | PROVIDERS: PCP Family Medicine; Visit Provider Podiatrist Primary Podiatric Medicine | DX: E11.621 Type 2 diabetes mellitus with foot ulcer (principal); L97.521 Non-pressure chronic ulcer of other part of left foot limited to breakdown of skin | CPT/HCPCS: 15271; Q4132 ==

== ENCOUNTER → 2019-01-25 09:36 | Outpatient (CLI) | payer MEDICARE, OTHER, SELFPAY | PROVIDERS: PCP Family Medicine; Visit Provider Family Medicine | DX: E11.621 Type 2 diabetes mellitus with foot ulcer (principal); L97.521 Non-pressure chronic ulcer of other part of left foot limited to breakdown of skin; M86.672 Other chronic osteomyelitis, left ankle and foot | CPT/HCPCS: 99183; G0277 ==

== ENCOUNTER → 2019-01-26 09:00 | Outpatient (CLI) | payer MEDICARE, OTHER, SELFPAY | PROVIDERS: PCP Family Medicine; Visit Provider Family Medicine | DX: M86.672 Other chronic osteomyelitis, left ankle and foot (principal); E11.621 Type 2 diabetes mellitus with foot ulcer; L97.521 Non-pressure chronic ulcer of other part of left foot limited to breakdown of skin | CPT/HCPCS: 99183; G0277 ==

== ENCOUNTER → 2019-01-27 12:59 | Outpatient (CLI) | payer MEDICARE, OTHER, SELFPAY | PROVIDERS: PCP Family Medicine; Visit Provider Family Medicine | DX: E11.621 Type 2 diabetes mellitus with foot ulcer (principal); L97.521 Non-pressure chronic ulcer of other part of left foot limited to breakdown of skin; M86.672 Other chronic osteomyelitis, left ankle and foot | CPT/HCPCS: 15271; 99183; 99213; G0277; Q4186 ==

== ENCOUNTER → 2019-01-27 14:59 | Outpatient (CLI) | payer MEDICARE, OTHER, SELFPAY ==
--- NOTE | 2019-01-27 15:01 | DI.RAD.S_ITS ---
PROCEDURE: XR KUB INDICATIONS: Bilateral flank pain, history of kidney stones TECHNIQUE: One view of the abdomen acquired. COMPARISON: [facility], CR, KUB XRAY (1 VIEW ABDOMEN), 08/01/2014, 10:23. [facility], CT, KIDNEY/ URETER/BLADDER, 07/21/2014, 22:04. FINDINGS: Surgical changes and devices: None. Bowel: Bowel gas pattern is normal. Soft tissues: No new suspicious abdominal calcifications, and several small calcifications previously present at the left renal collecting system can again be seen, measuring only approximately 3 x 4 mm in dimension. Visualized solid organ contours appear normal in size. Bones: No suspicious bony lesions. IMPRESSION: Stable appearance of small left renal collecting system calculi measuring approximately 3 x 4 mm. These were previously present on CT scanning from 2014. A ureteral stone on the left has resolved. Dictated by: Elmer Ocasio M.D. on 01/27/2019 at 16:25 Approved by: Elmer Ocasio M.D. on 01/27/2019 at 16:26
[2019-01-27 15:39] LABS: Bacteria Urine None Seen; WBC Urine None Seen (0-5/HPF)
[2019-01-27 15:51] LABS: Appearance Urine UA CLEAR; Bilirubin Urine UA NEGATIVE (NEGATIVE); Color Urine UA YELLOW; Glucose Urine UA NEGATIVE (Negative); Ketones Urine UA NEGATIVE (NEGATIVE); Leukocyte Esterase Urine UA NEGATIVE (NEGATIVE); Nitrite Urine UA NEGATIVE (Negative); Occult Blood Urine UA TRACE-INTACT (Negative); Protein Urine UA NEGATIVE (Negative); Urobilinogen Urine UA 0.2 E.U./dL (0.2)
[2019-01-27 15:52] LABS: Hematocrit 41.2 % (41-53); Hemoglobin 13.7 g/dL (13.5-17.5); Mean Corpuscular HGB Conc 33.3 % (30-36); Mean Corpuscular Hemoglobin 30.6 PG (26-34); Mean Corpuscular Volume 92.1 fL (80-100); Platelet Count 215 X10^3/uL (150-400); Red Blood Cell Count 4.47 X10^6/uL (4.5-5.9); Red Cell Distribution Width 14.7 % (11.6-14.8); White Blood Cell Count 5.7 X10^3/uL (4.5-11.0)
[2019-01-27 16:07] LABS: RBC Urine 0-1/HPF (0-5/HPF)
[2019-01-27 16:08] LABS: Culture Indicated Urine Cult Not Indicated
[2019-01-27 16:30] LABS: BUN Creatinine Ratio 26.7 (6-22); Blood Urea Nitrogen 24 mg/dL (9-20); Calcium 9.5 mg/dL (8.4-10.2); Carbon Dioxide 23 mmol/L (22-32); Chloride 108 mmol/L (98-107); Estimated Glomerular Filt Rate > 60.0 mL/min (>60); Glucose 148 mg/dL (80-110); HEMOLYSIS 30 (0-50); Potassium 4.6 mmol/L (3.4-5.1); Sodium 141 mmol/L (137-145)
== END ==
PROVIDERS: Nurse Practitioner Family; PCP Family Medicine; Visit Provider Family Medicine
DX: R10.9 Unspecified abdominal pain (principal); E11.42 Type 2 diabetes mellitus with diabetic polyneuropathy; E11.621 Type 2 diabetes mellitus with foot ulcer; L97.521 Non-pressure chronic ulcer of other part of left foot limited to breakdown of skin; M86.672 Other chronic osteomyelitis, left ankle and foot
CPT/HCPCS: 15271; 36415; 74018; 80048; 81001; 83036; 85027; G0277; Q4186

== ENCOUNTER → 2019-01-29 08:29 | Outpatient (CLI) | payer MEDICARE, OTHER, SELFPAY | PROVIDERS: PCP Family Medicine; Visit Provider Family Medicine | DX: E11.621 Type 2 diabetes mellitus with foot ulcer (principal); L97.524 Non-pressure chronic ulcer of other part of left foot with necrosis of bone | CPT/HCPCS: 99183; G0277 ==

== ENCOUNTER → 2019-02-01 09:30 | Outpatient (CLI) | payer MEDICARE, OTHER, SELFPAY | PROVIDERS: PCP Family Medicine; Visit Provider Family Medicine | DX: E11.621 Type 2 diabetes mellitus with foot ulcer (principal); L97.524 Non-pressure chronic ulcer of other part of left foot with necrosis of bone; M86.672 Other chronic osteomyelitis, left ankle and foot | CPT/HCPCS: 99183; G0277 ==

== ENCOUNTER → 2019-02-02 09:55 | Outpatient (CLI) | payer MEDICARE, OTHER, SELFPAY | PROVIDERS: PCP Family Medicine; Visit Provider Family Medicine | DX: E11.621 Type 2 diabetes mellitus with foot ulcer (principal); L97.524 Non-pressure chronic ulcer of other part of left foot with necrosis of bone; M86.672 Other chronic osteomyelitis, left ankle and foot | CPT/HCPCS: 99183; G0277 ==

== ENCOUNTER → 2019-02-03 09:48 | Outpatient (CLI) | payer MEDICARE, OTHER, SELFPAY | PROVIDERS: PCP Family Medicine; Visit Provider Family Medicine | DX: E11.621 Type 2 diabetes mellitus with foot ulcer (principal); L97.524 Non-pressure chronic ulcer of other part of left foot with necrosis of bone; M86.672 Other chronic osteomyelitis, left ankle and foot | CPT/HCPCS: 99183; G0277 ==

== ENCOUNTER → 2019-02-04 10:02 | Outpatient (CLI) | payer MEDICARE, OTHER, SELFPAY | PROVIDERS: PCP Family Medicine; Visit Provider Family Medicine | DX: E11.621 Type 2 diabetes mellitus with foot ulcer (principal); L97.524 Non-pressure chronic ulcer of other part of left foot with necrosis of bone; M86.672 Other chronic osteomyelitis, left ankle and foot | CPT/HCPCS: 99183; G0277 ==

== ENCOUNTER → 2019-02-05 13:14 | Outpatient (CLI) | payer MEDICARE, OTHER, SELFPAY | PROVIDERS: PCP Family Medicine; Visit Provider Family Medicine | DX: E11.621 Type 2 diabetes mellitus with foot ulcer (principal); L97.524 Non-pressure chronic ulcer of other part of left foot with necrosis of bone; M86.672 Other chronic osteomyelitis, left ankle and foot | CPT/HCPCS: 99183; G0277 ==

== ENCOUNTER → 2019-02-08 08:41 | Outpatient (CLI) | payer MEDICARE, OTHER, SELFPAY | PROVIDERS: PCP Family Medicine; Visit Provider Family Medicine | DX: E11.621 Type 2 diabetes mellitus with foot ulcer (principal); L97.524 Non-pressure chronic ulcer of other part of left foot with necrosis of bone; M86.672 Other chronic osteomyelitis, left ankle and foot | CPT/HCPCS: 99183; G0277 ==

== ENCOUNTER → 2019-02-09 07:07 | Outpatient (CLI) | payer MEDICARE, OTHER, SELFPAY ==
[2019-02-09 07:56] LABS: Hemoglobin A1C% w Est Avg Glu 6.1 % (4.0-6.0)
[2019-02-09 07:58] LABS: Alanine Aminotransferase 22 IU/L (21-72); Albumin 4.2 g/dL (3.5-5.0); Albumin Globulin Ratio 1.4 (1.0-2.8); Alkaline Phosphatase 77 U/L (38-126); Aspartate Aminotransferase 18 IU/L (17-59); BUN Creatinine Ratio 25.6 (6-22); Bilirubin Total 0.9 mg/dL (0.2-1.3); Blood Urea Nitrogen 23 mg/dL (9-20); Calcium 9.7 mg/dL (8.4-10.2); Carbon Dioxide 28 mmol/L (22-32); Chloride 104 mmol/L (98-107); Cholesterol 176 mg/dL (140-199); Estimated Glomerular Filt Rate > 60.0 mL/min (>60); Globulin 2.9 g/dL (1.7-4.1); Glucose 111 mg/dL (80-110); HDL Cholesterol 44 mg/dL (40-60); LDL Cholesterol Calculated 112 mg/dL (<100); Sodium 142 mmol/L (137-145); Total Protein 7.1 g/dL (6.3-8.2); Triglycerides 98 mg/dL (35-150)
[2019-02-09 08:31] LABS: HEMOLYSIS < 15 (0-50); Prostate Specific Antigen 3.66 ng/mL (0.10-4.00)
== END ==
PROVIDERS: PCP Family Medicine; Visit Provider Family Medicine
DX: E11.42 Type 2 diabetes mellitus with diabetic polyneuropathy (principal); E78.2 Mixed hyperlipidemia; I10 Essential (primary) hypertension; Z12.5 Encounter for screening for malignant neoplasm of prostate; Z51.81 Encounter for therapeutic drug level monitoring
CPT/HCPCS: 36415; 80053; 80061; 83036; 84153; 84443

== ENCOUNTER → 2019-02-09 09:45 | Outpatient (CLI) | payer MEDICARE, OTHER, SELFPAY | PROVIDERS: PCP Family Medicine; Visit Provider Family Medicine | DX: E11.621 Type 2 diabetes mellitus with foot ulcer (principal); L97.524 Non-pressure chronic ulcer of other part of left foot with necrosis of bone; M86.672 Other chronic osteomyelitis, left ankle and foot | CPT/HCPCS: 99183; G0277 ==

== ENCOUNTER → 2019-02-10 11:17 | Outpatient (CLI) | payer MEDICARE, OTHER, SELFPAY | PROVIDERS: PCP Family Medicine; Visit Provider Family Medicine | DX: E11.621 Type 2 diabetes mellitus with foot ulcer (principal); L97.524 Non-pressure chronic ulcer of other part of left foot with necrosis of bone; M86.672 Other chronic osteomyelitis, left ankle and foot | CPT/HCPCS: 11042; 99183; G0277 ==

== ENCOUNTER → 2019-02-11 10:10 | Outpatient (CLI) | payer MEDICARE, OTHER, SELFPAY | PROVIDERS: PCP Family Medicine; Visit Provider Family Medicine | DX: E11.621 Type 2 diabetes mellitus with foot ulcer (principal); L97.524 Non-pressure chronic ulcer of other part of left foot with necrosis of bone; M86.672 Other chronic osteomyelitis, left ankle and foot | CPT/HCPCS: 99183; G0277 ==

== ENCOUNTER → 2019-02-12 11:49 | Outpatient (CLI) | payer MEDICARE, OTHER, SELFPAY | PROVIDERS: PCP Family Medicine; Visit Provider Family Medicine | DX: E11.621 Type 2 diabetes mellitus with foot ulcer (principal); L97.524 Non-pressure chronic ulcer of other part of left foot with necrosis of bone; M86.672 Other chronic osteomyelitis, left ankle and foot | CPT/HCPCS: 29445; 99183; G0277 ==

== ENCOUNTER → 2019-02-15 09:47 | Outpatient (CLI) | payer MEDICARE, OTHER, SELFPAY | PROVIDERS: PCP Family Medicine; Visit Provider Family Medicine | DX: E11.621 Type 2 diabetes mellitus with foot ulcer (principal); L97.524 Non-pressure chronic ulcer of other part of left foot with necrosis of bone; M86.672 Other chronic osteomyelitis, left ankle and foot | CPT/HCPCS: 99183; G0277 ==

== ENCOUNTER → 2019-02-16 08:31 | Outpatient (CLI) | payer MEDICARE, OTHER, SELFPAY | PROVIDERS: PCP Family Medicine; Visit Provider Family Medicine | DX: M86.671 Other chronic osteomyelitis, right ankle and foot (principal); E11.621 Type 2 diabetes mellitus with foot ulcer; L97.524 Non-pressure chronic ulcer of other part of left foot with necrosis of bone | CPT/HCPCS: 99183; G0277 ==

== ENCOUNTER → 2019-02-17 13:03 | Outpatient (CLI) | payer MEDICARE, OTHER, SELFPAY | PROVIDERS: PCP Family Medicine; Visit Provider Family Medicine | DX: E11.621 Type 2 diabetes mellitus with foot ulcer (principal); L97.524 Non-pressure chronic ulcer of other part of left foot with necrosis of bone; M86.672 Other chronic osteomyelitis, left ankle and foot | CPT/HCPCS: 11044; 87070; 87075; 87077; 87147; 87186; 87205; 99183; 99214; G0277 ==

== ENCOUNTER → 2019-02-19 10:55 | Outpatient (CLI) | payer MEDICARE, OTHER, SELFPAY | PROVIDERS: PCP Family Medicine; Visit Provider Family Medicine | DX: E11.621 Type 2 diabetes mellitus with foot ulcer (principal); L97.524 Non-pressure chronic ulcer of other part of left foot with necrosis of bone; M86.172 Other acute osteomyelitis, left ankle and foot | CPT/HCPCS: 99183; G0277 ==

== ENCOUNTER → 2019-02-19 11:25 | Outpatient (CLI) | payer MEDICARE, OTHER, SELFPAY ==
--- NOTE | 2019-02-19 | DI.RAD.S_ITS ---
PROCEDURE: XR FOOT LT MIN 3V INDICATIONS: ELEVATED STATUS OF OSTEOMYELITIS TECHNIQUE: 3 views of the foot were acquired. COMPARISON: [facility], CR, XR FOOT LT MIN 3V, 08/31/2018, 15:31. [facility], CR, XR FOOT LT MIN 3V, 12/08/2018, 15:00. FINDINGS: Bones: No fractures. Redemonstrated dislocation of the fifth MTP joint. There is cortical loss of the fifth metatarsal head, which appears progressed since the prior study. There is overlying skin irregularity and soft tissue swelling. Plantar and posterior calcaneal spurring. There is diffuse mild midfoot and hindfoot subchondral sclerosis and spurring. Flexion deformities of toes. Severe great toe interphalangeal joint degeneration. Soft tissues: No tibiotalar joint effusion. Achilles tendon appears normal. IMPRESSION: Further cortical bone loss involving the lateral fifth metatarsal head since 12/08/18, suggestive of active/recurrent osteomyelitis. Recommend clinical correlation, and continued radiographic surveillance after treatment. Redemonstrated dislocated fifth MTP joint. Dictated by: Prashant Knox M.D. on 02/19/2019 at 15:47 Approved by: Prashant Knox M.D. on 02/19/2019 at 15:52
[2019-02-19 12:11] LABS: Add Manual Diff / Slide Review NO; Basophils Absolute Auto 0 /uL (0-100); Basophils Percent Auto 0.7 % (0-2); Eosinophils Absolute Auto 400 /uL (0-450); Eosinophils Percent Auto 6.4 % (2-4); Hematocrit 38.8 % (41-53); Hemoglobin 12.8 g/dL (13.5-17.5); Lymphocytes Absolute Auto 1500 /uL (1100-4500); Lymphocytes Percent Auto 24.4 % (25-40); Mean Corpuscular Hemoglobin 30.4 PG (26-34); Mean Corpuscular Volume 92.1 fL (80-100); Monocytes Absolute Auto 800 /uL (0-900); Monocytes Percent Auto 12.7 % (3-14); Neutrophils Absolute Auto 3400 /uL (1500-7000); Neutrophils Percent Auto 55.8 % (50-75); Platelet Count 208 X10^3/uL (150-400); Red Blood Cell Count 4.21 X10^6/uL (4.5-5.9); Red Cell Distribution Width 13.7 % (11.6-14.8); White Blood Cell Count 6.1 X10^3/uL (4.5-11.0)
[2019-02-19 12:40] LABS: Erythrocyte Sedimentation Rate 25 MM/HR (0-15)
[2019-02-19 13:10] LABS: Alanine Aminotransferase 13 IU/L (21-72); Albumin Globulin Ratio 1.5 (1.0-2.8); Alkaline Phosphatase 99 U/L (38-126); Aspartate Aminotransferase 19 IU/L (17-59); BUN Creatinine Ratio 22.5 (6-22); Bilirubin Total 0.6 mg/dL (0.2-1.3); Blood Urea Nitrogen 27 mg/dL (9-20); C-Reactive Protein Quant 2.4 mg/dL (<1.0); Calcium 9.7 mg/dL (8.4-10.2); Carbon Dioxide 25 mmol/L (22-32); Chloride 104 mmol/L (98-107); Estimated Glomerular Filt Rate 58.9 mL/min (>60); Globulin 2.6 g/dL (1.7-4.1); Glucose 103 mg/dL (80-110); HEMOLYSIS < 15 (0-50); Potassium 4.7 mmol/L (3.4-5.1); Sodium 140 mmol/L (137-145); Total Protein 6.6 g/dL (6.3-8.2)
== END ==
PROVIDERS: Family Provider Family Medicine; PCP Family Medicine; Visit Provider Family Medicine
DX: E11.621 Type 2 diabetes mellitus with foot ulcer (principal); L97.524 Non-pressure chronic ulcer of other part of left foot with necrosis of bone
CPT/HCPCS: 36415; 73630; 80053; 85025; 85651; 86140; G0277

== ENCOUNTER → 2019-02-22 09:48 | Outpatient (CLI) | payer MEDICARE, OTHER, SELFPAY | PROVIDERS: PCP Family Medicine; Visit Provider Family Medicine | DX: E11.621 Type 2 diabetes mellitus with foot ulcer (principal); L97.524 Non-pressure chronic ulcer of other part of left foot with necrosis of bone; M86.172 Other acute osteomyelitis, left ankle and foot | CPT/HCPCS: 99183; G0277 ==

== ENCOUNTER → 2019-02-23 08:52 | Outpatient (CLI) | payer MEDICARE, OTHER, SELFPAY | PROVIDERS: PCP Family Medicine; Visit Provider Family Medicine | DX: E11.621 Type 2 diabetes mellitus with foot ulcer (principal); L97.524 Non-pressure chronic ulcer of other part of left foot with necrosis of bone; M86.172 Other acute osteomyelitis, left ankle and foot | CPT/HCPCS: 99183; G0277 ==

== ENCOUNTER → 2019-02-24 09:06 | Outpatient (CLI) | payer MEDICARE, OTHER, SELFPAY | PROVIDERS: PCP Family Medicine; Visit Provider Family Medicine | DX: E11.621 Type 2 diabetes mellitus with foot ulcer (principal); L97.524 Non-pressure chronic ulcer of other part of left foot with necrosis of bone; M86.672 Other chronic osteomyelitis, left ankle and foot | CPT/HCPCS: 11042; 99183; 99212; 99213; G0277 ==

== ENCOUNTER → 2019-03-03 11:00 | Outpatient (CLI) | payer MEDICARE, OTHER, SELFPAY | PROVIDERS: PCP Family Medicine; Visit Provider Family Medicine | DX: E11.621 Type 2 diabetes mellitus with foot ulcer (principal); L97.521 Non-pressure chronic ulcer of other part of left foot limited to breakdown of skin; R60.0 Localized edema; M86.672 Other chronic osteomyelitis, left ankle and foot | CPT/HCPCS: 99212; 99213 ==

== ENCOUNTER → 2019-03-10 10:42 | Outpatient (CLI) | payer MEDICARE, OTHER, SELFPAY | PROVIDERS: PCP Family Medicine; Visit Provider Family Medicine | DX: E11.621 Type 2 diabetes mellitus with foot ulcer (principal); L97.524 Non-pressure chronic ulcer of other part of left foot with necrosis of bone; M86.672 Other chronic osteomyelitis, left ankle and foot | CPT/HCPCS: 99212; 99213 ==

== ENCOUNTER 2019-03-11 13:14 | Day surgery (SDC) | payer MEDICARE, OTHER, SELFPAY ==
[2019-03-05 14:02] VITALS: BMI 30.2
--- NOTE | 2019-03-11 | PATH_ITS ---
[facility] Accession Number: [id number] . 01 Material submitted: . toe - FIFTH TOE AND PARTIAL METATASAL . 02 Diagnosis: Amputated Fifth Toe and Partial Metatarsal: Cutaneous ulcer with chronic active inflammation and fibrosis, and chronic active osteomyelitis involving underlying bone. Bone appears viable. Skin resection negative for significant inflammation. Bone resection margin shows mild chronic osteomyelitis with viable appearing bone. MRV/03/18/2019 . 02 Electronically signed: . Ihsan Vazquez MD, Pathologist NPI- [id number] . 01 Gross description: . Received in formalin, labeled fifth toe and partial metatarsal, is a toe with resected metatarsal (8.5 cm AP, 3.8 cm SI, 2.5 cm ML). The toenail is present. An opened navarrete ulcer (2.0 x 1.7 cm) is located on the central posterolateral aspect 3.3 cm from the bone resection margin, 1.0 cm from the posterior skin and soft tissue resection margin, and 4.3 cm from the tip of the toe. The surrounding skin is navarrete-white and irregularly firm and focally flaky. The underlying bone is hard and cannot be sliced with a scalpel. Ink code: black-superior; orange-inferior; purple-bone resection margin. Section code: (A1) skin and soft tissue resection margins, customer development representative; (A2) bone resection margin, en face; (A3) ulcer, customer development representative serial section; (A4) bone underlying ulcer, customer development representative serial section. Note: The bone sections have been decalcified. ([id number]) /MRV . 02 Pathologist provided ICD-10: M86.679 . 02 CPT . 593099, [id number] Performed at: 01 [facility] [address] [place] [address], [place], [place] [id number] MD Amador Rodriguez MD Phone: [phone] Performed at: 02 [facility] [address] [place], [place] [id number] MD Anum Campuzano MD Phone: [phone]
[2019-03-11 14:03] VITALS: BP 147/84; PULSE 83; RESP 16; TEMP 36.8; O2SAT 100; BMI 30.2
--- NOTE | 2019-03-11 15:03 | PM.PREOP ---
Pre-operative Note Interval Note History & Physical reviewed/Exam performed by Physician: Yes Changes to H&P: No
[2019-03-11] MEDS: CLINDAMYCIN 900 MG/50 ML PIGGYBACK 50 MG IV (15:21)
--- NOTE | 2019-03-11 15:57 | SUR.OPER ---
Supine on padded OR bed, head on pillow, arms secured on padded arm boards at <90 degrees abduction, legs uncrossed, safety belt at thigh, tape over blanket over lower legs.
[2019-03-11] MEDS: BUPIVACAINE 0.25% (PF) VIAL 30 ML INJ (16:13)
[2019-03-11 17:00] VITALS: BP 128/60; PULSE 80; RESP 13; TEMP 36.1; O2SAT 98
--- NOTE | 2019-03-11 17:03 | PM.OP.1 ---
Operative Date/Time/Diagnoses Date of procedure: 03/11/19 Time of procedure: 15:48 Pre-op diagnosis: Diabetic foot ulcer with osteomyelitis, left Post-op diagnosis: same Procedure & Clinicians Procedure: Amputation toe 1 with metatarsal, left (partial amputation of 5th metatarsal with 5th toe for osteomyelitis left foot) Same procedure as scheduled: Yes Indications: The patient is a 78-year-old male with longstanding left foot 5th metatarsal head ulceration he has osteomyelitis with lytic changes and complete erosion of the 5th metatarsal head. Patient has failed years of wound care including over 50 hyperbaric oxygen treatments with persistent open wound and worsening osteomyelitic changes. Patient was indicated for a partial 5th metatarsal excision with toe excision order to close the wound. The risks benefits and alternatives to the surgery discussed with the patient detail including the risk of recurrence or persistence of infection. Additionally risk for need for additional procedures, higher level of amputation, persistent pain, wound healing problems, damage to nerves and vessels, bleeding, PE, DVT, cardiac and pulmonary complications of general anesthesia up to including paralysis, stroke, . The patient understand and agreed with plan. Consent was signed in the office. Surgeon: Erica Erazo Click Yes if Unassisted: Yes Anesthesia Type: General and Local Operative Notes Findings: Plantar ulceration of the 5th metatarsal head. Complete osteolysis of the 5th metatarsal head. The partial 5th metatarsal amputation was taken through the metatarsal shaft. This was done planed lateral to medial to avoid any lateral and plantar prominences. The 5th toe was excised with the metatarsal and the entirety of the ulceration was widely excised with any necrotic remaining tissue. Closure Type: primary Specimen(s): other (Tissue for pathology. Bone for culture) Estimated Blood Loss (mL): 20 Blood products transfused: none Tourniquet time (min): 20 Procedure in detail: Patient was seen in the preoperative area the site of surgery was marked informed consent confirmed. Final questions were answered. The patient was brought back to the operating room by the anesthesia team. Patient was position on the operative table in the supine position. General anesthesia was administered. All bony prominences were well padded. An SCD was placed on the contralateral extremity. A well-padded thigh tourniquet was placed. The left lower extremity was prepped in standard sterile fashion. A formal time-out procedure was performed confirming the patient's side and site of surgery presence of informed consent. Since the patient had been on preoperative antibiotics antibiotics were administered through the IV. Attention was turned to the left 5th metatarsal. Radcliffe exsanguination was performed and the tourniquet was elevated to 250 mm of mercury for 20 minutes. There is a plantar ulceration of the 5th metatarsal head. The incision was drawn out this was longitudinal along the 5th metatarsal shaft and then ellipsed sized around the ulceration and to include the 5th toe which had been chronically dislocated. Sharp incision was taken down through the skin to the level of the bone. The metatarsal shaft was exposed and Hohmann tractors placed around it. The TP a saw was used to osteotomize the 5th metatarsal shaft and the distal metatarsal and ulceration 5th toe entirety were excised and removed. This was sent to pathology. A separate smaller bone sample was taken at the remaining 5th metatarsal base and sent to pathology for indication of any remaining osteomyelitic disease although the bone in this area appeared healthy. All devitalized tissue was debrided. The wound was thoroughly irrigated with 3 L of saline using cysto tubing. Following this the tourniquet was released and hemostasis was achieved. The flaps were arranged and deep closure was made with 2 0 inverted PDS sutures and the skin was closed with 3 O nylon suture. Good tissue apposition was obtained and the wound was closed primarily. Local and anesthetic was administered. Dressings were placed with Xeroform gauze abd pad a Kerlix and an Garcia wrap. Patient was woken from anesthesia and taken to the PACU in good condition. There no immediate complications with this procedure. All counts were correct. Complications: none Condition: stable Disposition: PACU Plan for aftercare: Patient will be heel or flatfoot weight-bearing in his offloading shoe. He will elevate the foot above heart level as much as possible. He may resume taking his anticoagulation tomorrow. Will leave the dressing in place until he follows up in clinic. Sutures remain in place a minimum of 3 weeks and more likely a 4 wks. He will have oxycodone for pain medication but may also take Tylenol. He will continue on his Bactrim. Will follow up cultures.
[2019-03-11 17:05] VITALS: BP 133/91; PULSE 85; RESP 14; O2SAT 98
[2019-03-11 17:10] VITALS: BP 135/77; PULSE 74; RESP 15; O2SAT 98
[2019-03-11 17:25] VITALS: BP 130/80; PULSE 90; RESP 16; TEMP 36.2; O2SAT 97
== END 2019-03-11 17:38 | disposition home or self-care (01) ==
PROVIDERS: PCP Family Medicine; Visit Provider Orthopaedic Surgery Foot and Ankle Surgery
PROC: (CPT 28810; principal; 2019-03-11 15:00)
DX: E11.621 Type 2 diabetes mellitus with foot ulcer (principal); E11.69 Type 2 diabetes mellitus with other specified complication; M86.672 Other chronic osteomyelitis, left ankle and foot; M19.072 Primary osteoarthritis, left ankle and foot; L97.519 Non-pressure chronic ulcer of other part of right foot with unspecified severity; E11.42 Type 2 diabetes mellitus with diabetic polyneuropathy; I48.91 Unspecified atrial fibrillation; I10 Essential (primary) hypertension; E66.9 Obesity, unspecified; Z79.4 Long term (current) use of insulin; Z86.718 Personal history of other venous thrombosis and embolism; Z79.01 Long term (current) use of anticoagulants; Z68.30 Body mass index [BMI] 30.0-30.9, adult
CPT/HCPCS: 28810; 87070; 87075; 87077; 87147; 87186; 87205; 88305; 88311; J2405; J2704; J3010

== ENCOUNTER → 2019-09-01 07:03 | Outpatient (CLI) | payer MEDICARE, OTHER, SELFPAY ==
[2019-09-01 08:01] LABS: Hemoglobin A1C% w Est Avg Glu 7.2 % (4.0-6.0)
[2019-09-01 08:42] LABS: Alanine Aminotransferase 13 IU/L (<50); Albumin 4.1 g/dL (3.5-5.0); Albumin Globulin Ratio 1.4 (1.0-2.8); Alkaline Phosphatase 83 U/L (38-126); Aspartate Aminotransferase 21 IU/L (17-59); Bilirubin Total 0.9 mg/dL (0.2-1.3); Blood Urea Nitrogen 21 mg/dL (9-20); Calcium 9.8 mg/dL (8.4-10.2); Carbon Dioxide 27 mmol/L (22-32); Chloride 105 mmol/L (98-107); Cholesterol 174 mg/dL (140-199); Estimated Glomerular Filt Rate > 60.0 mL/min (>60); Globulin 2.9 g/dL (1.7-4.1); Glucose 105 mg/dL (80-110); HDL Cholesterol 44 mg/dL (40-60); HEMOLYSIS < 15 (0-50); LDL Cholesterol Calculated 115 mg/dL (<100); Potassium 4.9 mmol/L (3.4-5.1); Sodium 140 mmol/L (137-145); Triglycerides 76 mg/dL (35-150)
== END ==
PROVIDERS: Referring Provider Family Medicine; Visit Provider Family Medicine
DX: E11.42 Type 2 diabetes mellitus with diabetic polyneuropathy (principal); E78.2 Mixed hyperlipidemia; I10 Essential (primary) hypertension
CPT/HCPCS: 36415; 80053; 80061; 83036

== ENCOUNTER → 2019-12-02 07:20 | Outpatient (CLI) | payer MEDICARE, OTHER, SELFPAY ==
[2019-12-02 08:17] LABS: Hemoglobin A1C% w Est Avg Glu 7.1 % (4.0-6.0)
[2019-12-02 08:32] LABS: BUN Creatinine Ratio 17.5 (6-22); Blood Urea Nitrogen 17 mg/dL (9-20); Calcium 9.5 mg/dL (8.4-10.2); Carbon Dioxide 29 mmol/L (22-32); Chloride 105 mmol/L (98-107); Estimated Glomerular Filt Rate > 60.0 mL/min (>60); Glucose 119 mg/dL (80-110); HEMOLYSIS < 15 (0-50); Potassium 4.5 mmol/L (3.4-5.1); Sodium 140 mmol/L (137-145)
== END ==
PROVIDERS: PCP Internal Medicine; Referring Provider Internal Medicine; Visit Provider Internal Medicine
DX: E11.42 Type 2 diabetes mellitus with diabetic polyneuropathy (principal); I10 Essential (primary) hypertension
CPT/HCPCS: 36415; 80048; 83036

== ENCOUNTER → 2020-02-29 07:16 | Outpatient (CLI) | payer MEDICARE, OTHER, SELFPAY ==
[2020-02-29 08:37] LABS: Hemoglobin A1C% w Est Avg Glu 6.5 % (4.0-6.0)
[2020-02-29 09:06] LABS: Alanine Aminotransferase 11 IU/L (<50); Albumin 4.2 g/dL (3.5-5.0); Albumin Globulin Ratio 1.6 (1.0-2.8); Alkaline Phosphatase 65 U/L (38-126); Aspartate Aminotransferase 20 IU/L (17-59); BUN Creatinine Ratio 22.9 (6-22); Blood Urea Nitrogen 22 mg/dL (9-20); Carbon Dioxide 27 mmol/L (22-32); Chloride 104 mmol/L (98-107); Cholesterol 169 mg/dL (140-199); Estimated Glomerular Filt Rate > 60.0 mL/min (>60); Globulin 2.6 g/dL (1.7-4.1); Glucose 97 mg/dL (80-110); HDL Cholesterol 43 mg/dL (40-60); HEMOLYSIS 20 (0-50); LDL Cholesterol Calculated 107 mg/dL (<100); Potassium 4.9 mmol/L (3.4-5.1); Sodium 139 mmol/L (137-145); Total Protein 6.8 g/dL (6.3-8.2); Triglycerides 97 mg/dL (35-150)
== END ==
PROVIDERS: PCP Internal Medicine; Referring Provider Internal Medicine; Visit Provider Internal Medicine
DX: E11.42 Type 2 diabetes mellitus with diabetic polyneuropathy (principal); E78.2 Mixed hyperlipidemia; I10 Essential (primary) hypertension
CPT/HCPCS: 36415; 80053; 80061; 83036

== ENCOUNTER → 2021-01-18 06:53 | Outpatient (CLI) | payer MEDICARE, OTHER, SELFPAY ==
[2021-01-18 07:56] LABS: Hemoglobin A1C% w Est Avg Glu 7.6 % (4.0-6.0)
[2021-01-18 08:05] LABS: Alanine Aminotransferase 12 IU/L (<50); Albumin 3.9 g/dL (3.5-5.0); Albumin Globulin Ratio 1.6 (1.0-2.8); Alkaline Phosphatase 75 U/L (38-126); Aspartate Aminotransferase 19 IU/L (17-59); BUN Creatinine Ratio 23.7 (6-22); Bilirubin Total 0.7 mg/dL (0.2-1.3); Blood Urea Nitrogen 23 mg/dL (9-20); Calcium 9.4 mg/dL (8.4-10.2); Carbon Dioxide 26 mmol/L (22-32); Chloride 107 mmol/L (98-107); Cholesterol 158 mg/dL (140-199); Estimated Glomerular Filt Rate > 60.0 mL/min (>60); Globulin 2.5 g/dL (1.7-4.1); Glucose 121 mg/dL (80-110); HDL Cholesterol 45 mg/dL (40-60); HEMOLYSIS < 15 (0-50); LDL Cholesterol Calculated 97 mg/dL (<100); Potassium 5.2 mmol/L (3.4-5.1); Sodium 139 mmol/L (137-145); Total Protein 6.4 g/dL (6.3-8.2); Triglycerides 79 mg/dL (35-150)
== END ==
PROVIDERS: PCP Internal Medicine; Referring Provider Internal Medicine; Visit Provider Internal Medicine
DX: I48.91 Unspecified atrial fibrillation (principal); E11.42 Type 2 diabetes mellitus with diabetic polyneuropathy; I10 Essential (primary) hypertension
CPT/HCPCS: 36415; 80053; 80061; 83036

== ENCOUNTER → 2021-01-25 07:57 | Outpatient (CLI) | payer MEDICARE, OTHER, SELFPAY ==
[2021-01-25 09:08] LABS: BUN Creatinine Ratio 26.8 (6-22); Blood Urea Nitrogen 22 mg/dL (9-20); Calcium 9.6 mg/dL (8.4-10.2); Carbon Dioxide 29 mmol/L (22-32); Chloride 107 mmol/L (98-107); Estimated Glomerular Filt Rate > 60.0 mL/min (>60); Glucose 111 mg/dL (80-110); HEMOLYSIS 25 (0-50); Potassium 4.5 mmol/L (3.4-5.1); Sodium 140 mmol/L (137-145)
== END ==
PROVIDERS: PCP Internal Medicine; Referring Provider Nurse Practitioner; Visit Provider Nurse Practitioner
DX: I10 Essential (primary) hypertension (principal); E87.5 Hyperkalemia
CPT/HCPCS: 36415; 80048

== ENCOUNTER → 2022-01-31 06:46 | Outpatient (CLI) | payer MEDICARE, OTHER, SELFPAY ==
[2022-01-31 09:33] LABS: BUN Creatinine Ratio 21.3 (6-22); Blood Urea Nitrogen 20 mg/dL (9-20); Calcium 9.2 mg/dL (8.4-10.2); Carbon Dioxide 27 mmol/L (22-32); Chloride 104 mmol/L (98-107); Cholesterol 172 mg/dL (140-199); Estimated Glomerular Filt Rate > 60 mL/min (>60); Glucose 127 mg/dL (80-110); HDL Cholesterol 42 mg/dL (40-60); HEMOLYSIS < 15 (0-50); LDL Cholesterol Calculated 109 mg/dL (<100); Sodium 140 mmol/L (137-145); Triglycerides 103 mg/dL (35-150)
[2022-01-31 09:45] LABS: Hemoglobin A1C% w Est Avg Glu 9.7 % (4.0-6.0)
[2022-01-31 10:13] LABS: Creatinine Urine Random 84.6 mg/dL
[2022-01-31 10:16] LABS: Microalbumi Creatinin Ratio Ur 62.6 ug/mg CR (<30); Microalbumin Urine Random 5.3 mg/dL (0-1.6)
== END ==
PROVIDERS: PCP Internal Medicine; Referring Provider Internal Medicine; Visit Provider Internal Medicine
DX: E11.65 Type 2 diabetes mellitus with hyperglycemia (principal); E78.2 Mixed hyperlipidemia; E11.42 Type 2 diabetes mellitus with diabetic polyneuropathy
CPT/HCPCS: 36415; 80048; 80061; 82043; 82570; 83036

== ENCOUNTER → 2022-04-09 07:14 | Outpatient (CLI) | payer MEDICARE, OTHER, SELFPAY ==
[2022-04-09 08:50] LABS: Hemoglobin A1C% w Est Avg Glu 7.7 % (4.0-6.0)
[2022-04-09 09:19] LABS: Cholesterol 139 mg/dL (140-199); HDL Cholesterol 47 mg/dL (40-60); LDL Cholesterol Calculated 69 mg/dL (<100); Triglycerides 113 mg/dL (35-150)
== END ==
PROVIDERS: PCP Internal Medicine; Referring Provider Internal Medicine Cardiovascular Disease; Visit Provider Internal Medicine Cardiovascular Disease
DX: E11.65 Type 2 diabetes mellitus with hyperglycemia (principal); E78.2 Mixed hyperlipidemia
CPT/HCPCS: 36415; 80061; 83036

== ENCOUNTER → 2022-06-29 07:41 | Outpatient (CLI) | payer MEDICARE, OTHER, SELFPAY ==
[2022-06-29 10:32] LABS: Blood Urea Nitrogen 21 mg/dL (9-20); Calcium 9.7 mg/dL (8.4-10.2); Carbon Dioxide 27 mmol/L (22-32); Chloride 105 mmol/L (98-107); Estimated Glomerular Filt Rate > 60 mL/min (>60); Glucose 124 mg/dL (80-110); HEMOLYSIS < 15 (0-50); Potassium 4.8 mmol/L (3.4-5.1); Sodium 140 mmol/L (137-145)
== END ==
PROVIDERS: PCP Internal Medicine; Referring Provider Internal Medicine; Visit Provider Internal Medicine
DX: E11.65 Type 2 diabetes mellitus with hyperglycemia (principal); E78.2 Mixed hyperlipidemia; I10 Essential (primary) hypertension
CPT/HCPCS: 36415; 80048; 83036

== ENCOUNTER → 2022-12-23 07:04 | Outpatient (CLI) | payer MEDICARE, OTHER, SELFPAY ==
[2022-12-23 08:36] LABS: Add Manual Diff / Slide Review NO; Basophils Absolute Auto 0 /uL (0-100); Basophils Percent Auto 0.7 % (0-2); Eosinophils Absolute Auto 300 /uL (0-450); Eosinophils Percent Auto 5.9 % (2-4); Hemoglobin 13.7 g/dL (13.5-17.5); Lymphocytes Absolute Auto 1300 /uL (1100-4500); Lymphocytes Percent Auto 23.4 % (25-40); Mean Corpuscular HGB Conc 33.5 % (30-36); Mean Corpuscular Hemoglobin 30.2 PG (26-34); Mean Corpuscular Volume 90.2 fL (80-100); Monocytes Absolute Auto 600 /uL (0-900); Neutrophils Absolute Auto 3400 /uL (1500-7000); Platelet Count 205 X10^3/uL (150-400); Red Blood Cell Count 4.55 X10^6/uL (4.5-5.9); Red Cell Distribution Width 13.6 % (11.6-14.8); White Blood Cell Count 5.7 X10^3/uL (4.5-11.0)
[2022-12-23 09:08] LABS: Alanine Aminotransferase 20 IU/L (<50); Albumin 4.1 g/dL (3.5-5.0); Albumin Globulin Ratio 1.7 (1.0-2.8); Alkaline Phosphatase 84 U/L (38-126); Aspartate Aminotransferase 20 IU/L (17-59); Bilirubin Total 0.4 mg/dL (0.2-1.3); Blood Urea Nitrogen 25 mg/dL (9-20); Calcium 9.2 mg/dL (8.4-10.2); Carbon Dioxide 30 mmol/L (22-32); Chloride 103 mmol/L (98-107); Cholesterol 126 mg/dL (140-199); Estimated Glomerular Filt Rate > 60 mL/min (>60); Globulin 2.4 g/dL (1.7-4.1); Glucose 133 mg/dL (80-110); HDL Cholesterol 47 mg/dL (40-60); HEMOLYSIS < 15 (0-50); LDL Cholesterol Calculated 69 mg/dL (<100); Potassium 4.8 mmol/L (3.4-5.1); Sodium 138 mmol/L (137-145); Total Protein 6.5 g/dL (6.3-8.2); Triglycerides 51 mg/dL (35-150)
[2022-12-24 07:43] LABS: x Labcorp Estim. Avg Glu (eAG) 183 mg/dL (.)
== END ==
PROVIDERS: PCP Internal Medicine; Referring Provider Internal Medicine; Visit Provider Internal Medicine
DX: E11.65 Type 2 diabetes mellitus with hyperglycemia (principal); E78.2 Mixed hyperlipidemia; I10 Essential (primary) hypertension
CPT/HCPCS: 36415; 80053; 80061; 83036; 85025

== ENCOUNTER → 2023-03-25 07:18 | Outpatient (CLI) | payer MEDICARE, OTHER, SELFPAY ==
[2023-03-25 09:22] LABS: Hemoglobin A1C% w Est Avg Glu 7.7 % (4.0-6.0)
[2023-03-25 09:31] LABS: BUN Creatinine Ratio 28.4 (6-22); Blood Urea Nitrogen 27 mg/dL (9-20); Calcium 9.5 mg/dL (8.4-10.2); Carbon Dioxide 24 mmol/L (22-32); Chloride 104 mmol/L (98-107); Estimated Glomerular Filt Rate > 60 mL/min (>60); Glucose 109 mg/dL (80-110); HEMOLYSIS < 15 (0-50); Potassium 4.9 mmol/L (3.4-5.1); Sodium 138 mmol/L (137-145)
== END ==
PROVIDERS: Internal Medicine Cardiovascular Disease; PCP Internal Medicine; Referring Provider Internal Medicine; Visit Provider Internal Medicine
DX: E11.65 Type 2 diabetes mellitus with hyperglycemia (principal); E78.2 Mixed hyperlipidemia; I10 Essential (primary) hypertension; I48.91 Unspecified atrial fibrillation
CPT/HCPCS: 36415; 80048; 83036

== ENCOUNTER → 2023-08-05 07:11 | Outpatient (CLI) | payer MEDICARE, OTHER, SELFPAY ==
[2023-08-05 07:55] LABS: Hemoglobin A1C% w Est Avg Glu 9.1 % (4.0-6.0)
[2023-08-05 08:10] LABS: Alanine Aminotransferase 25 IU/L (<50); Albumin Globulin Ratio 1.3 (1.0-2.8); Alkaline Phosphatase 96 U/L (38-126); Aspartate Aminotransferase 26 IU/L (17-59); Bilirubin Total 0.9 mg/dL (0.2-1.3); Blood Urea Nitrogen 22 mg/dL (9-20); Calcium 9.9 mg/dL (8.4-10.2); Carbon Dioxide 28 mmol/L (22-32); Chloride 99 mmol/L (98-107); Cholesterol 130 mg/dL (140-199); Estimated Glomerular Filt Rate > 60 mL/min (>60); Globulin 3.1 g/dL (1.7-4.1); Glucose 201 mg/dL (80-110); HDL Cholesterol 43 mg/dL (40-60); HEMOLYSIS < 15 (0-50); LDL Cholesterol Calculated 65 mg/dL (<100); Sodium 135 mmol/L (137-145); Total Protein 7.1 g/dL (6.3-8.2); Triglycerides 111 mg/dL (35-150)
[2023-08-05 11:52] LABS: Creatinine Urine Random 113.3 mg/dL
[2023-08-05 11:55] LABS: Microalbumi Creatinin Ratio Ur 81.2 ug/mg CR (<30); Microalbumin Urine Random 9.2 mg/dL (0-1.6)
== END ==
PROVIDERS: PCP Internal Medicine; Referring Provider Internal Medicine; Visit Provider Internal Medicine
DX: E11.65 Type 2 diabetes mellitus with hyperglycemia (principal); I10 Essential (primary) hypertension; E78.2 Mixed hyperlipidemia
CPT/HCPCS: 36415; 80053; 80061; 82043; 82570; 83036

== ENCOUNTER → 2023-11-06 07:00 | Outpatient (CLI) | payer MEDICARE, OTHER, SELFPAY ==
[2023-11-06 08:18] LABS: BUN Creatinine Ratio 20.8 (6-22); Blood Urea Nitrogen 21 mg/dL (9-20); Calcium 9.7 mg/dL (8.4-10.2); Carbon Dioxide 26 mmol/L (22-32); Chloride 105 mmol/L (98-107); Estimated Glomerular Filt Rate > 60 mL/min (>60); Glucose 215 mg/dL (80-110); HEMOLYSIS < 15 (0-50); Potassium 4.6 mmol/L (3.4-5.1); Sodium 138 mmol/L (137-145)
[2023-11-06 08:55] LABS: Hemoglobin A1C% w Est Avg Glu 11.7 % (4.0-6.0)
== END ==
PROVIDERS: PCP Internal Medicine; Referring Provider Internal Medicine; Visit Provider Internal Medicine
DX: E11.65 Type 2 diabetes mellitus with hyperglycemia (principal)
CPT/HCPCS: 36415; 80048; 83036

== ENCOUNTER → 2024-01-30 09:34 | Outpatient (CLI) | payer MEDICARE, OTHER, SELFPAY ==
[2024-01-30 10:57] LABS: Hemoglobin A1C% w Est Avg Glu 11.5 % (4.0-6.0)
[2024-01-30 11:09] LABS: BUN Creatinine Ratio 26.4 (6-22); Blood Urea Nitrogen 28 mg/dL (9-20); Calcium 9.7 mg/dL (8.4-10.2); Carbon Dioxide 24 mmol/L (22-32); Chloride 103 mmol/L (98-107); Estimated Glomerular Filt Rate > 60 mL/min (>60); Glucose 272 mg/dL (80-110); HEMOLYSIS < 15 (0-50); Potassium 5.3 mmol/L (3.4-5.1); Sodium 136 mmol/L (137-145)
[2024-01-30 17:31] LABS: Appearance Urine UA SL CLOUDY; Bilirubin Urine UA NEGATIVE (NEGATIVE); Color Urine UA YELLOW; Glucose Urine UA 3+ g/dL (Negative); Ketones Urine UA NEGATIVE (NEGATIVE); Leukocyte Esterase Urine UA 2+ (NEGATIVE); Nitrite Urine UA NEGATIVE (Negative); Occult Blood Urine UA TRACE-INTACT (Negative); Protein Urine UA 1+ (Negative); pH Urine UA 5.5 (4.5-8.0)
[2024-01-30 17:42] LABS: Bacteria Urine Many (>30); Culture Indicated Urine Specimen Cultured; RBC Urine 0-1/HPF (0-5/HPF); Squamous Epithelial Cell Urine 0-1 /HPF (0-5/HPF); Urine Volume 10mL (spun); WBC Urine 30-100/HPF (0-5/HPF)
== END ==
PROVIDERS: PCP Internal Medicine; Referring Provider Internal Medicine; Visit Provider Internal Medicine
DX: E11.65 Type 2 diabetes mellitus with hyperglycemia (principal); I10 Essential (primary) hypertension; R31.9 Hematuria, unspecified
CPT/HCPCS: 36415; 80048; 81001; 83036; 87077; 87086; 87186

== ENCOUNTER → 2024-02-13 12:47 | Outpatient (CLI) | payer MEDICARE, OTHER, SELFPAY ==
[2024-02-13 13:10] LABS: Appearance Urine UA CLOUDY; Bilirubin Urine UA NEGATIVE (NEGATIVE); Color Urine UA YELLOW; Glucose Urine UA NEGATIVE (Negative); Ketones Urine UA TRACE (NEGATIVE); Leukocyte Esterase Urine UA 3+ (NEGATIVE); Nitrite Urine UA NEGATIVE (Negative); Occult Blood Urine UA 3+ (Negative); Protein Urine UA 3+ (Negative); Specific Gravity Urine UA 1.025 (1.000-1.035)
[2024-02-13 13:13] LABS: Urine Volume 10mL (spun)
[2024-02-13 13:16] LABS: Bacteria Urine None Seen; Culture Indicated Urine Specimen Cultured; RBC Urine 30-100/HPF (0-5/HPF); Squamous Epithelial Cell Urine 0-1 /HPF (0-5/HPF); WBC Urine 30-100/HPF (0-5/HPF)
== END ==
PROVIDERS: PCP Internal Medicine; Referring Provider Internal Medicine; Visit Provider Internal Medicine
DX: R39.89 Other symptoms and signs involving the genitourinary system (principal)
CPT/HCPCS: 81001; 87077; 87086; 87186

== ENCOUNTER 2024-04-23 10:00 | Emergency (ER) | payer MEDICARE, OTHER, SELFPAY ==
[2024-04-23] VITALS (10 sets, daily range): BP systolic 117–134; BP diastolic 61–79; PULSE 77–98; RESP 16–25; TEMP 36.6; O2SAT 94–99; BMI 29.3
--- NOTE | 2024-04-23 10:29 | ED.GENADULT ---
HPI - General Adult <Lorenza Bejarano DO - Last Filed: 04/28/24 04:36> General Chief complaint: Diabetic Problem Stated complaint: High Blood sugar, and low on and off Time Seen by Provider: 04/23/24 10:25 Source: patient and family Mode of arrival: Family Vehicle History of Present Illness HPI narrative: 83-year-old male history of diabetes, hypertension, dyslipidemia, atrial fibrillation on Eliquis and aspirin 81 mg daily who presents with complaint feeling unwell since August. Patient states he has had a cough since August which has been dry, has passed some kidney stones in the interim most recently 2 weeks ago had what sounds like some hematuria he states has not had any pain or hematuria since. Does note that he is felt like his equilibrium has been off for the past 1-2 weeks had an episode where he had difficulty with speech. He has also had hypoglycemic events most recently yesterday he had a fall, had glucose is 67 had gotten up made coffee fell asleep at the table his son called for well check she did not answer the phone and when they evaluated him it was 33 he was treated with dextrose in the field return to the 180s and then deferred transport. Patient states he has had some other lows he typically checks his glucose in the morning and runs 80-90 for his blood sugar. He was to 40s this morning. He states no new changes to medications recently. He does note he is on metformin a 1000 mg in the morning and evening with a 500 mg dose mid day as well as Jardiance twice daily. He does not take any insulin. Patient states he has had several falls recently and has felt balance, his friend at bedside states his speech is different but not dysarthric not aphasic but more his behavior. He has not appreciate any lateralizing weakness. No reports of fevers no headache, no chest pain or shortness of breath, denies any nausea or vomiting, denies any diarrhea or constipation, no dysuria urgency frequency or new incontinence. Denies any new swelling in extremities. Has a quadrant wound on his left foot over the 4th metatarsal after having his 5th digit on his foot and left metatarsal amputated, it is never fully healed but he states it has been doing well. Denies any drug allergies. Regular tobacco, alcohol or recreational drugs. Dr. Dalal is his primary care physician. Related Data Home Medications Medication Instructions Recorded Confirmed apixaban 5 mg tablet (Eliquis) 5 mg PO BID 01/27/19 02/03/24 cholecalciferol (vitamin D3) 25 1,000 unit PO DAILY 01/27/19 02/03/24 mcg (1,000 unit) tablet cyanocobalamin (vitamin B-12) 2,500 mcg sublingual DAILY 01/27/19 02/03/24 2,500 mcg sublingual tablet metoprolol succinate 25 mg 25 mg PO DAILY 01/27/19 02/03/24 tablet,extended release 24 hr multivitamin 1 tab PO DAILY 01/27/19 02/03/24 peg [id number] 1 1 dose EYE-BOTH DIRECTED 01/27/19 02/03/24 %-0.2 %-0.2 % eye drops (Dry Eye Relief) vitamin E mixed 400 unit capsule unit PO 01/27/19 02/03/24 Zinc 1 tab PO DAILY 02/19/22 02/03/24 aspirin 81 mg chewable tablet 81 mg PO DAILY 02/19/22 02/03/24 (Juhi Chewable Low Dose Aspirin) rosuvastatin 20 mg tablet 20 mg PO DAILY 02/19/22 02/03/24 CoQ10 1 tab PO DAILY 04/15/22 02/03/24 Vitamin B12 1 tab PO DAILY 04/15/22 02/03/24 ascorbic acid (vitamin C) 500 mg 1 g PO DAILY 04/15/22 02/03/24 tablet vitamin E (dl, acetate) 180 mg 180 mg PO DAILY 04/15/22 02/03/24 (400 unit) capsule Previous Rx's Medication Instructions Recorded Glucose: Home Monitoring Kit 0 kit #1 ea 03/06/16 Lancets - Extra fine #100 ea 12/06/19 One touch ultra blue test strips #100 ea 06/08/20 lisinopril 2.5 mg tablet 2.5 mg PO DAILY #90 tabs 08/11/23 bacitracin 500 unit/gram topical 1 applic topical TID #30 grams 11/10/23 ointment glipizide 10 mg tablet 10 mg PO BID #180 tabs 02/03/24 metformin 500 mg tablet See Rx Instructions .Route 02/03/24 .COMPLEX #450 tabs ciprofloxacin HCl 500 mg tablet 500 mg PO BID #14 tabs 04/26/24 (Cipro) blood-glucose meter,continuous #1 ea 04/27/24 (Dexcom G7 Services Advisor) blood-glucose sensor (Dexcom G7 #1 ea 04/27/24 Sensor device) Allergies Allergy/AdvReac Type Severity Reaction Status Date / Time No Known Allergies Allergy Uncoded 04/23/24 10:17 Review of Systems <Lorenza Bejarano DO - Last Filed: 04/28/24 04:36> Review of Systems ROS Unobtainable: All systems reviewed & are unremarkable except as noted in HPI and below Patient History <Lorenza Bejarano DO - Last Filed: 04/28/24 04:36> Medical History Diabetes type 2, uncontrolled Bigeminy Diabetic macular edema (Unknown) Hx pulmonary embolism (~2012) Diabetic foot ulcers (Unknown) Diabetic neuropathy (Unknown) Hypertension (Unknown) History of DVT (deep vein thrombosis) (~2012) History of hepatitis B (1964) Kidney stones (~07/2014) Rosacea (Unknown) Diabetes (Unknown) Hyperlipemia (Unknown) Cataract of both eyes (08/19/16) History of diabetic ulcer of foot (12/26/15) Diabetic polyneuropathy associated with type 2 diabetes mellitus (12/26/15) Benign non-nodular prostatic hyperplasia with lower urinary tract symptoms (12/26/15) Type 2 diabetes mellitus with diabetic polyneuropathy (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 Grandfather No problems noted. Grandmother No problems noted. Grandfather No problems noted. Grandmother No problems noted. Sister Cancer Social History household members: none Smoking Status: Never smoker alcohol intake: former substance use type: does not use Smoking Status: Never smoker Substance Use Type: does not use Exam <Lorenza Bejarano DO - Last Filed: 04/28/24 04:36> Narrative Exam Narrative: GEN: Male, alert and oriented x 3, patient appears to be in mild distress. HEENT: Atraumatic, pupils are equal round reactive to light, extraocular movements are intact, nares are clear, TMs are clear with no fluid, there is no conjunctival pallor. Throat is clear without any exudates, erythema, tonsillar enlargement or uvular deviation, no facial droop HEART: Regular rate and rhythm without murmur, clicks, rubs. Pulses are equal in upper and lower extremities LUNGS:Lungs clear to auscultation, no wheezes, rales, crackles, chest moves symmetrically ABD:bowel sounds normal, soft, non-tender, no guarding, rebound, rigidity, no masses noted, no hepatosplenomegaly :No CVA tenderness MSCL: Non-tender, no muscle atrophy, muscles strength 5/5 upper and lower extremities, full range of motion. Patient has a small wound in the underside of the foot at the distal 4th metatarsal, has some slight callus, no warmth, no erythema no drainage clean and dry. Patient does have some decreased sensation to the foot but states he can feel me touching it. NEURO:CN 2-12 intact, sensation normal, finger nose finger test normal, heel alcaraz test normal Initial Vital Signs Initial Vital Signs: Vital Signs Pulse Rate 98 H 04/23/24 10:13 Blood Pressure 134/76 04/23/24 10:13 Pulse Oximetry 96 04/23/24 10:13 <Dinorah Sandoval DO - Last Filed: 04/26/24 08:46> Initial Vital Signs Initial Vital Signs: Vital Signs Pulse Rate 98 H 04/23/24 10:13 Blood Pressure 134/76 04/23/24 10:13 Pulse Oximetry 96 04/23/24 10:13 Course <DO Aly Goel Last Filed: 04/28/24 04:36> Orders Ordered: Discontinued Medications Sodium Chloride (Normal Saline 0.9%) 1,000 mls @ 1,000 mls/hr IV BOLUS PRN PRN Reason: Fluid replacement Vital Signs Vital signs: Vital Signs - 8 hr 04/23/24 10:13 04/23/24 10:13 04/23/24 10:15 Temperature 98 F Pulse Rate 98 H 96 H Respiratory Rate 16 Blood Pressure 134/76 134/76 Pulse Oximetry 96 99 Oxygen Delivery Method Room Air 04/23/24 10:30 04/23/24 10:30 04/23/24 11:14 Temperature Pulse Rate 85 94 H Respiratory Rate 19 16 Blood Pressure 117/77 Pulse Oximetry 98 94 Oxygen Delivery Method 04/23/24 11:23 04/23/24 11:23 04/23/24 11:30 Temperature Pulse Rate 82 Respiratory Rate 25 H Blood Pressure 129/61 121/64 Pulse Oximetry 98 Oxygen Delivery Method Room Air 04/23/24 11:30 04/23/24 11:55 04/23/24 11:55 Temperature Pulse Rate 83 77 Respiratory Rate 25 H 21 Blood Pressure 129/79 Pulse Oximetry 98 98 Oxygen Delivery Method Room Air 04/23/24 12:00 04/23/24 12:00 04/23/24 12:30 Temperature Pulse Rate 84 80 Respiratory Rate 22 21 Blood Pressure 120/66 Pulse Oximetry 97 97 Oxygen Delivery Method <Dinorah Sandoval, DO - Last Filed: 04/26/24 08:46> Orders Ordered: Discontinued Medications Sodium Chloride (Normal Saline 0.9%) 1,000 mls @ 1,000 mls/hr IV BOLUS PRN PRN Reason: Fluid replacement Vital Signs Vital signs: Vital Signs - 8 hr 04/23/24 10:13 04/23/24 10:13 04/23/24 10:15 Temperature 98 F Pulse Rate 98 H 96 H Respiratory Rate 16 Blood Pressure 134/76 134/76 Pulse Oximetry 96 99 Oxygen Delivery Method Room Air 04/23/24 10:30 04/23/24 10:30 04/23/24 11:14 Temperature Pulse Rate 85 94 H Respiratory Rate 19 16 Blood Pressure 117/77 Pulse Oximetry 98 94 Oxygen Delivery Method 04/23/24 11:23 04/23/24 11:23 04/23/24 11:30 Temperature Pulse Rate 82 Respiratory Rate 25 H Blood Pressure 129/61 121/64 Pulse Oximetry 98 Oxygen Delivery Method Room Air 04/23/24 11:30 04/23/24 11:55 04/23/24 11:55 Temperature Pulse Rate 83 77 Respiratory Rate 25 H 21 Blood Pressure 129/79 Pulse Oximetry 98 98 Oxygen Delivery Method Room Air 04/23/24 12:00 04/23/24 12:00 04/23/24 12:30 Temperature Pulse Rate 84 80 Respiratory Rate 22 21 Blood Pressure 120/66 Pulse Oximetry 97 97 Oxygen Delivery Method Medical Decision Making <Lorenza Bejarano, - Last Filed: 04/28/24 04:36> Lab Data 04/23/24 10:21 04/23/24 10:21 Labs: Lab Results 04/23/24 04/23/24 04/23/24 Range/Units 10:21 11:21 11:49 WBC 14.6 H (4.5-11.0) X10^3/uL RBC 4.67 (4.5-5.9) X10^6/uL Hgb 14.0 (13.5-17.5) g/dL Hct 42.4 (41-53) % MCV 90.8 (80-100) fL MCH 30.0 (26-34) PG MCHC 33.1 (30-36) % RDW 14.3 (11.6-14.8) % Plt Count 214 (150-400) X10^3/uL Neut % (Auto) 85.2 H (50-75) % Lymph % (Auto) 4.0 L (25-40) % Schleicher % (Auto) 10.4 (3-14) % Eos % (Auto) 0.1 L (2-4) % Baso % (Auto) 0.3 (0-2) % Neut # (Auto) 25404 H (0032-5408) /uL Lymph # (Auto) 600 L (7068-5623) /uL Schleicher # (Auto) 1500 H (0-900) /uL Eos # (Auto) 0 (0-450) /uL Baso # (Auto) 0 (0-100) /uL VBG pH 7.41 (7.33-7.43) VBG pCO2 34.2 L (45-50) mmHg VBG pO2 46 H (35-45) mmHg VBG HCO3 21 L (24-28) mmol/L VBG Total CO2 21 L (24-29) mmol/L VBG O2 Saturation 82 H (70-75) % VBG Base Excess -2.5 L (0-4) mmol/L FiO2 % 21 % % Sodium 129 L (137-145) mmol/L Potassium 3.8 (3.4-5.1) mmol/L Chloride 98 (98-107) mmol/L Carbon Dioxide 20 L (22-32) mmol/L BUN 51 H (9-20) mg/dL Creatinine 1.65 H (0.66-1.25) mg/dL Estimated GFR 41 L (>60) mL/min BUN/Creatinine Ratio 30.9 H (6-22) Glucose 228 H (80-110) mg/dL Calcium 9.1 (8.4-10.2) mg/dL Total Bilirubin 1.3 (0.2-1.3) mg/dL AST 49 (17-59) IU/L ALT 37 (<50) IU/L Alkaline Phosphatase 100 (38-126) U/L Total Protein 7.1 (6.3-8.2) g/dL Albumin 3.8 (3.5-5.0) g/dL Globulin 3.3 (1.7-4.1) g/dL Albumin/Globulin Ratio 1.2 (1.0-2.8) Lipase 40 (23-300) U/L Urine RBC (0-5/HPF) Urine WBC (0-5/HPF) Ur Squamous Epith Cells (0-5/HPF) Urine Bacteria (None) Vol Urine Centrifuged Ketones 1.09 H (<0.27) mmol/L SARS-CoV-2 (PCR) Negative (Negative) Influenza A (RT-PCR) Flu a negative (NEGATIVE) Influenza B (RT-PCR) Flu b negative (NEGATIVE) RSV (PCR) Negative (Negative) 04/23/24 Range/Units 11:52 WBC (4.5-11.0) X10^3/uL RBC (4.5-5.9) X10^6/uL Hgb (13.5-17.5) g/dL Hct (41-53) % MCV (80-100) fL MCH (26-34) PG MCHC (30-36) % RDW (11.6-14.8) % Plt Count (150-400) X10^3/uL Neut % (Auto) (50-75) % Lymph % (Auto) (25-40) % Schleicher % (Auto) (3-14) % Eos % (Auto) (2-4) % Baso % (Auto) (0-2) % Neut # (Auto) (3086-3437) /uL Lymph # (Auto) (3127-9425) /uL Schleicher # (Auto) (0-900) /uL Eos # (Auto) (0-450) /uL Baso # (Auto) (0-100) /uL VBG pH (7.33-7.43) VBG pCO2 (45-50) mmHg VBG pO2 (35-45) mmHg VBG HCO3 (24-28) mmol/L VBG Total CO2 (24-29) mmol/L VBG O2 Saturation (70-75) % VBG Base Excess (0-4) mmol/L FiO2 % % Sodium (137-145) mmol/L Potassium (3.4-5.1) mmol/L Chloride (98-107) mmol/L Carbon Dioxide (22-32) mmol/L BUN (9-20) mg/dL Creatinine (0.66-1.25) mg/dL Estimated GFR (>60) mL/min BUN/Creatinine Ratio (6-22) Glucose (80-110) mg/dL Calcium (8.4-10.2) mg/dL Total Bilirubin (0.2-1.3) mg/dL AST (17-59) IU/L ALT (<50) IU/L Alkaline Phosphatase (38-126) U/L Total Protein (6.3-8.2) g/dL Albumin (3.5-5.0) g/dL Globulin (1.7-4.1) g/dL Albumin/Globulin Ratio (1.0-2.8) Lipase (23-300) U/L Urine RBC 5-10/hpf H (0-5/HPF) Urine WBC 10-30/hpf H (0-5/HPF) Ur Squamous Epith Cells 1-5 /hpf (0-5/HPF) Urine Bacteria Moderate (10-30) H (None) Vol Urine Centrifuged 10ml (spun) Ketones (<0.27) mmol/L SARS-CoV-2 (PCR) (Negative) Influenza A (RT-PCR) (NEGATIVE) Influenza B (RT-PCR) (NEGATIVE) RSV (PCR) (Negative) Point of Care Testing Glucose POC 214 Urine Dip Bedside Urine Glucose Negative Bedside Urine Bilirubin - Negative Bedside Urine Ketone +/- 5 Urine Specific [place] 1.025 Bedside Urine Occult Blood +++ Bedside Urine pH 5.5 Bedside Urine Protein ++ 100 Bedside Urine Urobilinogen - Negative Bedside Urine Nitrite - Negative Bedside Urine Leukocytes +++ 500 Esterase Point of care testing: Point of Care Testing Glucose POC 214 Urine Dip Bedside Urine Glucose Negative Bedside Urine Bilirubin - Negative Bedside Urine Ketone +/- 5 Urine Specific [place] 1.025 Bedside Urine Occult Blood +++ Bedside Urine pH 5.5 Bedside Urine Protein ++ 100 Bedside Urine Urobilinogen - Negative Bedside Urine Nitrite - Negative Bedside Urine Leukocytes +++ [address] scan - head: Radiologist's Impression: Taras Moon??83??M??1940 ? Allergy/Adv: [No Known Allergies] Close Head CT (Signed) Jun Maya - 04/23/24 Chest X-Ray (Signed) Jun Maya - 04/23/24 Foot X-Ray (Signed) Prashant Knox - 02/19/19 KUB X-Ray (Signed) Elmer Ocasio - 01/27/19 Foot X-Ray (Signed) Prashant Knox - 12/08/18 Echocardiogram Ultrasound (Signed) Aleksandra Britt - 12/08/18 Chest X-Ray (Signed) Prashant Knox - 11/18/18 Foot X-Ray (Signed) Elmer Ocasio - 08/31/18 Foot MRI (Signed) Elmer Ocasio - 08/26/18 Foot X-Ray (Signed) Molina Barrett - 07/27/18 Launch?[place] [id number] CT Scan Report Signed Patient: Taras Moon MR#: [id number] : 1940 Acct:[id number] Age/Sex: 83 / M Date of Service: 04/23/24 Loc: ED Accession Number: [id number] Procedure: CT head/brain wo con Ordering Provider: Lorenza Bejarano D.O. PROCEDURE: CT HEAD/BRAIN WO CON INDICATIONS: equilbrium problems, falls x1 week TECHNIQUE: Noncontrast 4.5 mm thick angled axial sections acquired from the foramen magnum to the vertex, with coronal and sagittal reformats. For radiation dose reduction, the following was used: automated exposure control, adjustment of mA and/or kV according to patient size. COMPARISON: None. FINDINGS: Image quality: Diagnostic. CSF spaces: Basal cisterns are patent. No extra-axial fluid collections. The ventricles are symmetric in size and shape. Brain: No intracranial bleeds or masses. There is cerebral volume loss for age, with resultant ventricular and sulcal prominence. There are periventricular and deep white matter chronic small vessel ischemic changes. There is intracranial internal carotid artery atherosclerosis. Skull and face: Calvarium and visualized facial bones appear intact, without suspicious lesions. Sinuses: Visualized sinuses and mastoids are clear. IMPRESSION: No acute intracranial pathology. Dictated by: Jun Maya M.D. on 04/23/2024 at 11:32 Approved by: Jun Maya M.D. on 04/23/2024 at 11:35 Chest x-ray: Radiologist's Impression: Taras Moon??83??M??1940 ? Allergy/Adv: [No Known Allergies] Close Head CT (Signed) Jun Maya - 04/23/24 Chest X-Ray (Signed) Jun Maya - 04/23/24 Foot X-Ray (Signed) Prashant Knox - 02/19/19 KUB X-Ray (Signed) Elmer Ocasio - 01/27/19 Foot X-Ray (Signed) Prashant Knox - 12/08/18 Echocardiogram Ultrasound (Signed) Aleksandra Britt - 12/08/18 Chest X-Ray (Signed) Prashant Knox - 11/18/18 Foot X-Ray (Signed) Elmer Ocasio - 08/31/18 Foot MRI (Signed) Elmer Ocasio - 08/26/18 Foot X-Ray (Signed) Molina Barrett - 07/27/18 Launch?[address] [address] XRay Report Signed Patient: Taras Moon MR#: [id number] : 1940 Acct:[id number] Age/Sex: 83 / M Date of Service: 04/23/24 Loc: ED Accession Number: [id number] Procedure: XR chest 2V Ordering Provider: Lorenza Bejarano D.O. PROCEDURE: XR CHEST 2V INDICATIONS: cough since aug, hypoglycemia, equilibrium problems TECHNIQUE: 2 views of the chest were acquired. COMPARISON: None. FINDINGS: Surgical changes and devices: None. Lungs and pleura: Lungs are clear. No pleural effusions or pneumothorax. Mediastinum: Mediastinal contours are normal. Heart size is enlarged. Bones and chest wall: No suspicious bony abnormalities. Soft tissues appear unremarkable. IMPRESSION: No acute cardiopulmonary abnormality is seen. Cardiomegaly. Dictated by: Jun Maya M.D. on 04/23/2024 at 11:35 Approved by: Jun Maya M.D. on 04/23/2024 at 11:36 ECG Data Attestation: I personally reviewed and interpreted this ECG as follows: Prior ECG tracings: available for review Interpretation: AFib, rate of 74 QRS of 104 QTC of 430, no acute ST elevation or depression appreciated. Patient has prior from 08/20/2014 sinus rhythm in comparison today's atrial fibrillation nonspecific change to ST segments. MDM Narrative Medical decision making narrative: 83-year-old male who describes feeling little bit under the weather for the past 6 months but had some increased weakness and being off his equilibrium for the past 1-2 weeks did note to be hypoglycemic yesterday was elevated in his glucose from his normal baseline although compared to prior labs Patient's head is nontender and normocephalic. There is no swelling nor any obvious injury. EKG shows AFib rate of 74 Chest x-ray shows cardiomegaly no other acute changes. Head CT shows no acute change. Labs show white count of 14.6 hemoglobin of 14 platelets of 214 predominance of neutrophils. Chemistries show sodium 129 down from 136 in January, corrected for hyperglycemia sodium is 131. Potassium 3.8 chloride 98 with CO2 of 20 BUN 51 creatinine 1.65, glucose is 228, LFTs are normal lipase is 40. VBG shows a pH of 7.406, pCO2 of 34 PO2 of 45 with a bicarb 21. Positive for ketones 1.09 Point of care urine shows blood, protein, leukocyte esterase. Urine microscopy shows 5-10 RBCs 10-30 WBCs moderate bacteria. COVID/influenza/RSV is negative. Patient has a bump in his creatinine compared to January, about 3 months ago. Does not appear to have a UTI today. Discussed with patient vitals are appropriate he does not appear septic appears nontoxic. He noticed some changes to his equilibrium but I suspect this maybe more related to potential infection no acute changes on head CT he is appropriately anticoagulated with Eliquis and aspirin. We will start patient on oral antibiotic patient is to follow up did have labs rechecked. He has not upcoming appointment in the next 1-2 weeks. <Dinorah Sandoval, - Last Filed: 04/26/24 08:46> Lab Data Labs: Lab Results 04/23/24 04/23/24 04/23/24 Range/Units 10:21 11:21 11:49 WBC 14.6 H (4.5-11.0) X10^3/uL RBC 4.67 (4.5-5.9) X10^6/uL Hgb 14.0 (13.5-17.5) g/dL Hct 42.4 (41-53) % MCV 90.8 (80-100) fL MCH 30.0 (26-34) PG MCHC 33.1 (30-36) % RDW 14.3 (11.6-14.8) % Plt Count 214 (150-400) X10^3/uL Neut % (Auto) 85.2 H (50-75) % Lymph % (Auto) 4.0 L (25-40) % Schleicher % (Auto) 10.4 (3-14) % Eos % (Auto) 0.1 L (2-4) % Baso % (Auto) 0.3 (0-2) % Neut # (Auto) 85367 H (5570-2690) /uL Lymph # (Auto) 600 L (6507-6102) /uL Schleicher # (Auto) 1500 H (0-900) /uL Eos # (Auto) 0 (0-450) /uL Baso # (Auto) 0 (0-100) /uL VBG pH 7.41 (7.33-7.43) VBG pCO2 34.2 L (45-50) mmHg VBG pO2 46 H (35-45) mmHg VBG HCO3 21 L (24-28) mmol/L VBG Total CO2 21 L (24-29) mmol/L VBG O2 Saturation 82 H (70-75) % VBG Base Excess -2.5 L (0-4) mmol/L FiO2 % 21 % % Sodium 129 L (137-145) mmol/L Potassium 3.8 (3.4-5.1) mmol/L Chloride 98 (98-107) mmol/L Carbon Dioxide 20 L (22-32) mmol/L BUN 51 H (9-20) mg/dL Creatinine 1.65 H (0.66-1.25) mg/dL Estimated GFR 41 L (>60) mL/min BUN/Creatinine Ratio 30.9 H (6-22) Glucose 228 H (80-110) mg/dL Calcium 9.1 (8.4-10.2) mg/dL Total Bilirubin 1.3 (0.2-1.3) mg/dL AST 49 (17-59) IU/L ALT 37 (<50) IU/L Alkaline Phosphatase 100 (38-126) U/L Total Protein 7.1 (6.3-8.2) g/dL Albumin 3.8 (3.5-5.0) g/dL Globulin 3.3 (1.7-4.1) g/dL Albumin/Globulin Ratio 1.2 (1.0-2.8) Lipase 40 (23-300) U/L Urine RBC (0-5/HPF) Urine WBC (0-5/HPF) Ur Squamous Epith Cells (0-5/HPF) Urine Bacteria (None) Vol Urine Centrifuged Ketones 1.09 H (<0.27) mmol/L SARS-CoV-2 (PCR) Negative (Negative) Influenza A (RT-PCR) Flu a negative (NEGATIVE) Influenza B (RT-PCR) Flu b negative (NEGATIVE) RSV (PCR) Negative (Negative) 04/23/24 Range/Units 11:52 WBC (4.5-11.0) X10^3/uL RBC (4.5-5.9) X10^6/uL Hgb (13.5-17.5) g/dL Hct (41-53) % MCV (80-100) fL MCH (26-34) PG MCHC (30-36) % RDW (11.6-14.8) % Plt Count (150-400) X10^3/uL Neut % (Auto) (50-75) % Lymph % (Auto) (25-40) % Schleicher % (Auto) (3-14) % Eos % (Auto) (2-4) % Baso % (Auto) (0-2) % Neut # (Auto) (0270-9298) /uL Lymph # (Auto) (8640-8827) /uL Schleicher # (Auto) (0-900) /uL Eos # (Auto) (0-450) /uL Baso # (Auto) (0-100) /uL VBG pH (7.33-7.43) VBG pCO2 (45-50) mmHg VBG pO2 (35-45) mmHg VBG HCO3 (24-28) mmol/L VBG Total CO2 (24-29) mmol/L VBG O2 Saturation (70-75) % VBG Base Excess (0-4) mmol/L FiO2 % % Sodium (137-145) mmol/L Potassium (3.4-5.1) mmol/L Chloride (98-107) mmol/L Carbon Dioxide (22-32) mmol/L BUN (9-20) mg/dL Creatinine (0.66-1.25) mg/dL Estimated GFR (>60) mL/min BUN/Creatinine Ratio (6-22) Glucose (80-110) mg/dL Calcium (8.4-10.2) mg/dL Total Bilirubin (0.2-1.3) mg/dL AST (17-59) IU/L ALT (<50) IU/L Alkaline Phosphatase (38-126) U/L Total Protein (6.3-8.2) g/dL Albumin (3.5-5.0) g/dL Globulin (1.7-4.1) g/dL Albumin/Globulin Ratio (1.0-2.8) Lipase (23-300) U/L Urine RBC 5-10/hpf H (0-5/HPF) Urine WBC 10-30/hpf H (0-5/HPF) Ur Squamous Epith Cells 1-5 /hpf (0-5/HPF) Urine Bacteria Moderate (10-30) H (None) Vol Urine Centrifuged 10ml (spun) Ketones (<0.27) mmol/L SARS-CoV-2 (PCR) (Negative) Influenza A (RT-PCR) (NEGATIVE) Influenza B (RT-PCR) (NEGATIVE) RSV (PCR) (Negative) Point of Care Testing Glucose POC 214 Urine Dip Bedside Urine Glucose Negative Bedside Urine Bilirubin - Negative Bedside Urine Ketone +/- 5 Urine Specific [place] 1.025 Bedside Urine Occult Blood +++ Bedside Urine pH 5.5 Bedside Urine Protein ++ 100 Bedside Urine Urobilinogen - Negative Bedside Urine Nitrite - Negative Bedside Urine Leukocytes +++ 500 Esterase Point of care testing: Point of Care Testing Glucose POC 214 Urine Dip Bedside Urine Glucose Negative Bedside Urine Bilirubin - Negative Bedside Urine Ketone +/- 5 Urine Specific [place] 1.025 Bedside Urine Occult Blood +++ Bedside Urine pH 5.5 Bedside Urine Protein ++ 100 Bedside Urine Urobilinogen - Negative Bedside Urine Nitrite - Negative Bedside Urine Leukocytes +++ 500 Esterase MDM Narrative Medical decision making narrative: 83-year-old male who describes feeling little bit under the weather for the past 6 months but had some increased weakness and being off his equilibrium for the past 1-2 weeks did note to be hypoglycemic yesterday was elevated in his glucose from his normal baseline although compared to prior labs Patient's head is nontender and normocephalic. There is no swelling nor any obvious injury. EKG shows AFib rate of 74 Chest x-ray shows cardiomegaly no other acute changes. Head CT shows no acute change. Labs show white count of 14.6 hemoglobin of 14 platelets of 214 predominance of neutrophils. Chemistries show sodium 129 down from 136 in January, corrected for hyperglycemia sodium is 131. Potassium 3.8 chloride 98 with CO2 of 20 BUN 51 creatinine 1.65, glucose is 228, LFTs are normal lipase is 40. VBG shows a pH of 7.406, pCO2 of 34 PO2 of 45 with a bicarb 21. Positive for ketones 1.09 Point of care urine shows blood, protein, leukocyte esterase. Urine microscopy shows 5-10 RBCs 10-30 WBCs moderate bacteria. COVID/influenza/RSV is negative. Patient has a bump in his creatinine compared to January, about 3 months ago. Does not appear to have a UTI today. Discussed with patient vitals are appropriate he does not appear septic appears nontoxic. He noticed some changes to his equilibrium but I suspect this maybe more related to potential infection no acute changes on head CT he is appropriately anticoagulated with Eliquis and aspirin. We will start patient on oral antibiotic patient is to follow up did have labs rechecked. He has not upcoming appointment in the next 1-2 weeks. 04/26/24 Dr. Sandoval urine culture positive for Enterococcus fussy LS resistant to tetracycline sent prescription ciprofloxacin 500 mg twice a day for 7 days to patient's pharmacy of choice nursing staff to call inpatient no longer needs Keflex Discharge Plan Departure Patient Disposition: Home Clinical Impression: Acute UTI, Creatinine elevation Activity Restrictions/Additional Instructions: Follow up with the with your physician for recheck. Your creatinine or renal function was off today, follow up with your doctor to have these rechecked to make sure it is normalized. You do appear to have a bladder infection or UTI, take antibiotics until they are completed. Take antibiotics until they are completed. Prescription was sent to [facility] [place]. Please return for fevers, any alterations in mental status, new chest pain or shortness of breath, vomiting, new abdominal back or flank pain, difficulty or inability to urinate or other new or concerning changes. Prescriptions: New ciprofloxacin HCl [Cipro] 500 mg tablet 500 mg PO BID Qty: 14 0RF No Action Glucose: Home Monitoring Kit 0 kit Qty: 1 0RF (DME) Lancets - Extra fine 33g 0 .Route .MEDSUPPLY Qty: 100 3RF Dose Instruction: As directed Rx Instructions: One Touch Delica Lancets 33g, use to test blood sugar daily (DME) One touch ultra blue test strips Qty: 100 3RF Dose Instruction: As directed Rx Instructions: Use one touch ultra blue test strips to test blood glucose once daily lisinopril 2.5 mg tablet 2.5 mg PO DAILY Qty: 90 3RF metformin 500 mg tablet See Rx Instructions .ROUTE .COMPLEX Qty: 450 3RF Rx Instructions: 1000mg in am and pm, 500mg at mid-day (DME) Dexcom G7 Services Advisor Misc See Rx Instructions .Route Qty: 1 0RF Rx Instructions: To check blood sugar 3-4 times/day and as needed to monitor sugar fluctuations (DME) Dexcom G7 Sensor Device See Rx Instructions .Route Qty: 1 0RF Rx Instructions: To check blood sugar 3-4 times/day and as needed to monitor sugar fluctuations Eliquis 5 mg tablet 5 mg PO BID metoprolol succinate 25 mg tablet extended release 24 hr 25 mg PO DAILY cyanocobalamin (vitamin B-12) 2,500 mcg tablet, sublingual 2,500 mcg SL DAILY cholecalciferol (vitamin D3) 1,000 unit tablet 1,000 unit PO DAILY vitamin E mixed 400 unit capsule PO multivitamin tablet 1 tab PO DAILY Dry Eye Relief 1-0.2-0.2 % drops 1 dose EYE-BOTH DIRECTED CoQ10 100 mg 1 tab PO DAILY aspirin [Juhi Chewable Aspirin] 81 mg tablet,chewable 81 mg PO DAILY rosuvastatin 20 mg tablet 20 mg PO DAILY Zinc 30 mg 1 tab PO DAILY ascorbic acid (vitamin C) 500 mg tablet 1 g PO DAILY Vitamin B12 1,000 mg 1 tab PO DAILY vitamin E (dl, acetate) 180 mg (400 unit) capsule 180 mg PO DAILY bacitracin 500 unit/gram ointment 1 applic topical TID Qty: 30 3RF glipizide 10 mg tablet 10 mg PO BID Qty: 180 3RF Referrals: Levi Dalal MD [Primary Care Provider] - Stand Alone Forms: Patient Portal/API
[2024-04-23 10:32] LABS: Add Manual Diff / Slide Review NO; Basophils Absolute Auto 0 /uL (0-100); Basophils Percent Auto 0.3 % (0-2); Eosinophils Absolute Auto 0 /uL (0-450); Eosinophils Percent Auto 0.1 % (2-4); Hematocrit 42.4 % (41-53); Lymphocytes Absolute Auto 600 /uL (1100-4500); Mean Corpuscular HGB Conc 33.1 % (30-36); Mean Corpuscular Volume 90.8 fL (80-100); Monocytes Absolute Auto 1500 /uL (0-900); Monocytes Percent Auto 10.4 % (3-14); Neutrophils Absolute Auto 12400 /uL (1500-7000); Neutrophils Percent Auto 85.2 % (50-75); Platelet Count 214 X10^3/uL (150-400); Red Blood Cell Count 4.67 X10^6/uL (4.5-5.9); Red Cell Distribution Width 14.3 % (11.6-14.8); White Blood Cell Count 14.6 X10^3/uL (4.5-11.0)
[2024-04-23 10:38] LABS: Alanine Aminotransferase 37 IU/L (<50); Albumin 3.8 g/dL (3.5-5.0); Albumin Globulin Ratio 1.2 (1.0-2.8); Alkaline Phosphatase 100 U/L (38-126); Aspartate Aminotransferase 49 IU/L (17-59); BUN Creatinine Ratio 30.9 (6-22); Bilirubin Total 1.3 mg/dL (0.2-1.3); Blood Urea Nitrogen 51 mg/dL (9-20); Calcium 9.1 mg/dL (8.4-10.2); Carbon Dioxide 20 mmol/L (22-32); Chloride 98 mmol/L (98-107); Estimated Glomerular Filt Rate 41 mL/min (>60); Globulin 3.3 g/dL (1.7-4.1); Glucose 228 mg/dL (80-110); HEMOLYSIS < 15 (0-50); Lipase 40 U/L (23-300); Potassium 3.8 mmol/L (3.4-5.1); Sodium 129 mmol/L (137-145); Total Protein 7.1 g/dL (6.3-8.2)
[2024-04-23 10:45] LABS: Ketones (Beta-Hydroxybutyrate) 1.09 mmol/L (<0.27)
--- NOTE | 2024-04-23 10:53 | DI.CT.S_ITS ---
PROCEDURE: CT HEAD/BRAIN WO CON INDICATIONS: equilbrium problems, falls x1 week TECHNIQUE: Noncontrast 4.5 mm thick angled axial sections acquired from the foramen magnum to the vertex, with coronal and sagittal reformats. For radiation dose reduction, the following was used: automated exposure control, adjustment of mA and/or kV according to patient size. COMPARISON: None. FINDINGS: Image quality: Diagnostic. CSF spaces: Basal cisterns are patent. No extra-axial fluid collections. The ventricles are symmetric in size and shape. Brain: No intracranial bleeds or masses. There is cerebral volume loss for age, with resultant ventricular and sulcal prominence. There are periventricular and deep white matter chronic small vessel ischemic changes. There is intracranial internal carotid artery atherosclerosis. Skull and face: Calvarium and visualized facial bones appear intact, without suspicious lesions. Sinuses: Visualized sinuses and mastoids are clear. IMPRESSION: No acute intracranial pathology. Dictated by: Jun Maya M.D. on 04/23/2024 at 11:32 Approved by: Jun Maya M.D. on 04/23/2024 at 11:35
--- NOTE | 2024-04-23 10:53 | DI.RAD.S_ITS ---
PROCEDURE: XR CHEST 2V INDICATIONS: cough since aug, hypoglycemia, equilibrium problems TECHNIQUE: 2 views of the chest were acquired. COMPARISON: None. FINDINGS: Surgical changes and devices: None. Lungs and pleura: Lungs are clear. No pleural effusions or pneumothorax. Mediastinum: Mediastinal contours are normal. Heart size is enlarged. Bones and chest wall: No suspicious bony abnormalities. Soft tissues appear unremarkable. IMPRESSION: No acute cardiopulmonary abnormality is seen. Cardiomegaly. Dictated by: Jun Maya M.D. on 04/23/2024 at 11:35 Approved by: Jun Maya M.D. on 04/23/2024 at 11:36
--- NOTE | 2024-04-23 11:21 | EKG_ITS ---
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
[2024-04-23 11:52] LABS: Base Excess VBG -2.5 mmol/L (0-4); HCO3 VBG 21 mmol/L (24-28); Oxygen Saturation VBG 82 % (70-75); PCO2 VBG 34.2 mmHg (45-50); PO2 VBG 46 mmHg (35-45); Total CO2 VBG 21 mmol/L (24-29); pH VBG 7.41 (7.33-7.43)
[2024-04-23 12:01] LABS: COVID-19 CEPHEID 4-PLEX PCR Negative (Negative); Influenza A - CEPHEID Flu A NEGATIVE (NEGATIVE); Influenza B - CEPHEID Flu B NEGATIVE (NEGATIVE); Respiratory Syncytial Virus Negative (Negative)
[2024-04-23 12:14] LABS: Bacteria Urine Moderate (10-30); RBC Urine 5-10/HPF (0-5/HPF); Squamous Epithelial Cell Urine 1-5 /HPF (0-5/HPF); Urine Volume 10mL (spun); WBC Urine 10-30/HPF (0-5/HPF)
== END 2024-04-23 13:12 | disposition home or self-care (01) ==
PROVIDERS: Emergency Provider Emergency Medicine; PCP Internal Medicine
DX: N39.0 Urinary tract infection, site not specified (principal); R05.9 Cough, unspecified; I51.7 Cardiomegaly; R53.1 Weakness; R29.6 Repeated falls; R79.89 Other specified abnormal findings of blood chemistry; Z11.52 Encounter for screening for COVID-19
CPT/HCPCS: 0241U; 36415; 70450; 71046; 80053; 81003; 81015; 82009; 82805; 82962; 83690; 85025; 87077; 87086; 87186; 93005; 93010; 99283; 99284

== ENCOUNTER → 2024-04-30 08:48 | Outpatient (CLI) | payer MEDICARE, OTHER, SELFPAY ==
[2024-04-30 10:43] LABS: Hemoglobin A1C% w Est Avg Glu 6.9 % (4.0-6.0)
== END ==
PROVIDERS: PCP Internal Medicine; Referring Provider Internal Medicine; Visit Provider Internal Medicine
DX: E11.65 Type 2 diabetes mellitus with hyperglycemia (principal); I10 Essential (primary) hypertension
CPT/HCPCS: 36415; 83036

== ENCOUNTER → 2024-05-03 09:59 | Outpatient (CLI) | payer MEDICARE, OTHER, SELFPAY ==
[2024-05-03 13:10] LABS: BUN Creatinine Ratio 25.4 (6-22); Blood Urea Nitrogen 33 mg/dL (9-20); Calcium 9.4 mg/dL (8.4-10.2); Carbon Dioxide 21 mmol/L (22-32); Chloride 104 mmol/L (98-107); Estimated Glomerular Filt Rate 55 mL/min (>60); Glucose 171 mg/dL (80-110); HEMOLYSIS < 15 (0-50); Potassium 5.2 mmol/L (3.4-5.1); Sodium 136 mmol/L (137-145)
== END ==
PROVIDERS: PCP Internal Medicine; Referring Provider Internal Medicine; Visit Provider Internal Medicine
DX: N39.0 Urinary tract infection, site not specified (principal)
CPT/HCPCS: 36415; 80048

== ENCOUNTER → 2024-05-12 11:15 | Outpatient (CLI) | payer MEDICARE, OTHER, SELFPAY ==
[2024-05-18 12:36] LABS: Ca oxalate dihydrate 20 % (.); Ca oxalate monohydr 80 % (.); Size 12x7 mm (.)
== END ==
PROVIDERS: PCP Internal Medicine; Visit Provider Urology
DX: N20.0 Calculus of kidney (principal); N39.0 Urinary tract infection, site not specified; N40.1 Benign prostatic hyperplasia with lower urinary tract symptoms; R35.1 Nocturia; R39.14 Feeling of incomplete bladder emptying; Z87.442 Personal history of urinary calculi
CPT/HCPCS: 51798; 82365; 99214

== ENCOUNTER → 2024-05-14 14:43 | Outpatient (CLI) | payer MEDICARE, OTHER, SELFPAY ==
--- NOTE | 2024-05-14 15:00 | DIAB.MNT ---
Initial Diabetes Medical Nutrition Therapy Assessment Name: Taras Moon Date: 05/14/24 Time: 3-4p Dx: Type II Diabetes Provider: Katlin Preferred Learning Style: Rough last 3 weeks with recent UTI and 6 falls, denies injury. Recent BG of 33mg/dl, EMS response after son's request for a wellness check. When BG under 70mg/dl he is treating with chocolate Using CGM and paying out of pocket over $100 per sensor. Insurance may cover with hypoglycemia events x 2 under 55mg/dl. h/o macular edema, sees specialist. HgA1c drastically changed. He has made big CHO changes since elevated hgA1c. Diet Recall: 540am wake 620a: hashbrown татьяна, 2 johnson, sweet peppers, mushrooms, 2 eggs, cheese, 2 corn tortillas, sausage татьяна OR 2 protein pancakes x 6 topped with sf syrup, butter, and egg 230p: half sandwich, lunch meat, cheese, lettuce, vernon, mustard, pickle slices, +/- 2-3 bites potato salad D: nothing or broccoli, brussel sprouts, cheese, chicken, 2-3 bites potato salad OR Divehi meatballs, tomato basil sauce, thin spaghetti 20oz x3 water 16oz coffee black Anthropometrics: Ht: 6'4 Wt: 233# Weight history: Physical Activity: Recumbent bike in bedroom. Considering to start this once his energy is improved. Self-Monitoring Blood Glucose: Wears Dexcom. Endorses recent lows, though not reflecting in TIR. He does seem to have evening lows under 70mg/dl early in the morning or late at night. May benefit from reduced glipizide in evening. [place] mentioning that he does often sleep on the side of his CGM sensor, could be having false lows as well. Overall, time in range well in goal. TIR: 1% very high 19% high 80% in range 0% low or very low 147mg/dl avg GMI: 6.8 std dev: 40 mg/dl variation: 27.3% Diabetes Medications: 5mg Glipizide BID 2500mg Metformin daily Pertinent Labs: HgA1c: 11.5% 01/2024 6.9% 04/2024 Past Medical History: (Last Reviewed 05/12/24 @ 17:55 by Juventino Desir, DO) Benign non-nodular prostatic hyperplasia with lower urinary tract symptoms (12/26/15) Bigeminy Calculus of kidney Cataract of both eyes (08/19/16) Diabetes (Unknown) Diabetes type 2, uncontrolled Diabetic foot ulcers (Unknown) Diabetic macular edema (Unknown) Diabetic neuropathy (Unknown) Diabetic polyneuropathy associated with type 2 diabetes mellitus (12/26/15) Essential hypertension (06/27/15) History of deep venous thrombosis (04/14/15) History of diabetic ulcer of foot (12/26/15) History of DVT (deep vein thrombosis) (~2012) w/ shana pulm embolism History of hepatitis B (1964) History of pulmonary embolism (04/14/15) Hx pulmonary embolism (~2012) shana. w/ DVT Hyperlipemia (Unknown) Hypertension (Unknown) Kidney stones (~07/2014) Passed stones recently Macular edema (04/14/15) Mixed hyperlipidemia (06/27/15) Obstructive sleep apnea syndrome (04/14/15) Rosacea (Unknown) Type 2 diabetes mellitus with diabetic polyneuropathy (06/27/15) Nutrition Rx: Carbohydrates: Meal: 45g Snack: 15-30g Nutrition Diagnosis: - Nutrition and food related knowledge deficit r/t limited nutrition education aeb pt report and treating lows with chocolate Intervention: This participant was very receptive. Provided appropriate educational handouts. Discussed the following topics: Completed intake assessment. Discussed barriers to care. RUle of 15 for low tx Medication management: sulfonlureas role in hypo Recommended servings for carbohydrates at meals and snacks Heart health nutrition Troubleshooting cost of CGM Role of physical activity and following provider guidelines for safety Created SMART goals for patient self-care and success. Goals: Eat before exercise If HS lows continue may want to d/c HS glipizide CHeck to confirm lows and rule out false lows Try [facility] CGM coupon Practice RUle of 15 for lows Follow-up: ARTHUR SOSA follow-up in 2-3 weeks Lilia Chu RDN, IAN Certified Diabetes Care and Control Systems Designer P: [phone] Thank you for this referral
== END ==
LOC: DIET 14:44
PROVIDERS: PCP Internal Medicine; Referring Provider Internal Medicine
DX: E11.65 Type 2 diabetes mellitus with hyperglycemia (principal); Z71.3 Dietary counseling and surveillance; Z79.84 Long term (current) use of oral hypoglycemic drugs
CPT/HCPCS: 97802

== ENCOUNTER → 2024-05-21 07:14 | Outpatient (CLI) | payer MEDICARE, OTHER, SELFPAY ==
[2024-05-21 08:12] LABS: Add Manual Diff / Slide Review NO; Basophils Absolute Auto 0 /uL (0-100); Basophils Percent Auto 0.6 % (0-2); Eosinophils Absolute Auto 500 /uL (0-450); Hematocrit 41.7 % (41-53); Hemoglobin 13.7 g/dL (13.5-17.5); Lymphocytes Absolute Auto 1500 /uL (1100-4500); Lymphocytes Percent Auto 27.4 % (25-40); Mean Corpuscular HGB Conc 32.9 % (30-36); Mean Corpuscular Hemoglobin 30.1 PG (26-34); Mean Corpuscular Volume 91.7 fL (80-100); Monocytes Absolute Auto 600 /uL (0-900); Monocytes Percent Auto 9.9 % (3-14); Neutrophils Absolute Auto 3100 /uL (1500-7000); Neutrophils Percent Auto 54.1 % (50-75); Platelet Count 216 X10^3/uL (150-400); Red Blood Cell Count 4.55 X10^6/uL (4.5-5.9); Red Cell Distribution Width 14.6 % (11.6-14.8); White Blood Cell Count 5.7 X10^3/uL (4.5-11.0)
[2024-05-21 08:43] LABS: Alanine Aminotransferase 19 IU/L (<50); Albumin 3.9 g/dL (3.5-5.0); Albumin Globulin Ratio 1.6 (1.0-2.8); Alkaline Phosphatase 85 U/L (38-126); Aspartate Aminotransferase 24 IU/L (17-59); BUN Creatinine Ratio 25.5 (6-22); Bilirubin Total 0.7 mg/dL (0.2-1.3); Blood Urea Nitrogen 25 mg/dL (9-20); Calcium 9.5 mg/dL (8.4-10.2); Carbon Dioxide 25 mmol/L (22-32); Chloride 105 mmol/L (98-107); Cholesterol 141 mg/dL (140-199); Estimated Glomerular Filt Rate > 60 mL/min (>60); Globulin 2.5 g/dL (1.7-4.1); Glucose 85 mg/dL (80-110); HDL Cholesterol 54 mg/dL (40-60); HEMOLYSIS 22 (0-50); LDL Cholesterol Calculated 67 mg/dL (<100); Potassium 4.5 mmol/L (3.4-5.1); Sodium 138 mmol/L (137-145); Total Protein 6.4 g/dL (6.3-8.2); Triglycerides 101 mg/dL (35-150)
[2024-05-21 09:05] LABS: TSH w/ Reflex to FT4 1.76 uIU/mL (0.47-4.68)
== END ==
PROVIDERS: PCP Internal Medicine; Referring Provider Physician Assistant; Visit Provider Physician Assistant
DX: I10 Essential (primary) hypertension (principal)
CPT/HCPCS: 36415; 80053; 80061; 84443; 85025

== ENCOUNTER → 2024-06-01 08:40 | Outpatient (CLI) | payer MEDICARE, OTHER, SELFPAY ==
--- NOTE | 2024-06-01 10:04 | DIAB.MNTFU ---
Follow-up Diabetes Medical Nutrition Therapy Assessment Name: Taras Moon Date: 06/01/24 Time: 9930a Dx: Type II Diabetes Provider: Katlin Zuniga presents for Dm follow-up. Overall, no issues with lows recently. A few under 70mg/dl after waiting too long to eat. Overnight may have a low on CGM reciever, but goes up 30 points when I get up insinuating that this is a compression low and not a true low. h/o macular edema, sees specialist. HgA1c drastically changed. He has made big CHO changes since elevated hgA1c. Some elevations each morning at breakfast running from 180-280mg/dl. States he often has the same breakfast. Carbs seem in goal with about 30-45g at this meal. Understands when to use juice/quick sugar for lows, though sometimes will treat in the night with a mini doughnut. Last Visit Diet Recall: 540am wake 620a: hashbrown татьяна, 2 johnson, sweet peppers, mushrooms, 2 eggs, cheese, 2 street corn tortillas, sausage татьяна OR 2 protein pancakes x 6 topped with sf syrup, butter, and egg 230p: half sandwich, lunch meat, cheese, lettuce, vernon, mustard, pickle slices, +/- 2-3 bites potato salad D: nothing or broccoli, brussel sprouts, cheese, chicken, 2-3 bites potato salad OR German meatballs, tomato basil sauce, thin spaghetti 20oz x3 water 16oz coffee black Anthropometrics: Ht: 6'4 Wt: 233# Physical Activity: Recumbent bike q other day for 15 mins. Plans to slowly increase. Self-Monitoring Blood Glucose: Used CGM coupon successfully. Also received a coupon card from his pharmacy. $65 per sensor instead of $150 per sensor. Slightly less elevations but increase in lows, but may not always be true lows as described above. Today TIR: 1% very high 18% high 79% in range 2% low <1 very low 143mg/dl avg GMI: 6.7% std dev: 40 mg/dl variation: 29.5% Last Visit TIR: 1% very high 19% high 80% in range 0% low or very low 147mg/dl avg GMI: 6.8% std dev: 40 mg/dl variation: 27.3% Diabetes Medications: 5mg Glipizide BID 2500mg Metformin daily Pertinent Labs: HgA1c: 11.5% 01/2024 6.9% 04/2024 Past Medical History: (Last Reviewed 05/12/24 @ 17:55 by Juventino Desir DO) Benign non-nodular prostatic hyperplasia with lower urinary tract symptoms (12/26/15) Bigeminy Calculus of kidney Cataract of both eyes (08/19/16) Diabetes (Unknown) Diabetes type 2, uncontrolled Diabetic foot ulcers (Unknown) Diabetic macular edema (Unknown) Diabetic neuropathy (Unknown) Diabetic polyneuropathy associated with type 2 diabetes mellitus (12/26/15) Essential hypertension (06/27/15) History of deep venous thrombosis (04/14/15) History of diabetic ulcer of foot (12/26/15) History of DVT (deep vein thrombosis) (~2012) w/ shana pulm embolism History of hepatitis B (1964) History of pulmonary embolism (04/14/15) Hx pulmonary embolism (~2012) shana. w/ DVT Hyperlipemia (Unknown) Hypertension (Unknown) Kidney stones (~07/2014) Passed stones recently Macular edema (04/14/15) Mixed hyperlipidemia (06/27/15) Obstructive sleep apnea syndrome (04/14/15) Rosacea (Unknown) Type 2 diabetes mellitus with diabetic polyneuropathy (06/27/15) Nutrition Rx: Carbohydrates: Meal: 45g Snack: 15-30g Nutrition Diagnosis: - Nutrition and food related knowledge deficit r/t limited nutrition education aeb pt report and treating lows with chocolate- improved/in progress Intervention: This participant was very receptive. Provided appropriate educational handouts. Discussed the following topics: RUle of 15 for low tx rationale Medication management: sulfonlureas role in hypo Recommended servings for carbohydrates at meals and snacks Importance of eating q 3-5 hours small/freq meals/snacks Role of physical activity and following provider guidelines for safety Created SMART goals for patient self-care and success. Goals: Eat before exercise- not met If HS lows continue may want to d/c HS glipizide- continue CHeck to confirm lows and rule out false lows- met Try [facility] CGM coupon- met Practice RUle of 15 for lows - met Eat q 3-5 hours- new use juice to treat lows- new Follow-up: ARTHUR SOSA follow-up in July to check in about TIR and lows and CGM cost/coupons. Encouraged him to call or message for sooner f/u prn. RD did message MA about if Efrain's ADS paperwork has been processed for covered CGM for lows. Lilia Chu RDN, [facility] Certified Diabetes Care and Cdc Associate P: [phone] Thank you for this referral
== END ==
PROVIDERS: PCP Internal Medicine; Referring Provider Internal Medicine
DX: E11.65 Type 2 diabetes mellitus with hyperglycemia (principal); Z79.84 Long term (current) use of oral hypoglycemic drugs; Z71.3 Dietary counseling and surveillance
CPT/HCPCS: 97803

== ENCOUNTER → 2024-06-04 10:17 | Outpatient (CLI) | payer MEDICARE, OTHER, SELFPAY ==
--- NOTE | 2024-06-04 10:18 | DI.RAD.S_ITS ---
PROCEDURE: XR KUB INDICATIONS: Kidney stones TECHNIQUE: One view of the abdomen acquired. COMPARISON: [facility], CR, XR KUB, 01/27/2019, 15:47. FINDINGS: Surgical changes and devices: None. Bowel: Bowel gas pattern is nonobstructive. Moderate fecal stasis throughout the colon is seen. No gross pneumoperitoneum. Soft tissues: 7 mm calcification is seen projecting in the region of left kidney. Multiple phleboliths are noted in lower pelvis. Previously noted possible left ureteral stone is no longer seen. Visualized solid organ contours appear normal in size. Bones: No suspicious bony lesions. IMPRESSION: Suggestion of 7 mm left renal stone. Phleboliths in lower pelvis. Moderate constipation. No gross free air. Dictated by: Molina Barrett M.D. on 06/04/2024 at 16:17 Approved by: Molina Barrett M.D. on 06/04/2024 at 16:27
== END ==
PROVIDERS: PCP Internal Medicine; Referring Provider Urology; Visit Provider Urology
DX: N20.0 Calculus of kidney (principal); K59.00 Constipation, unspecified; I87.8 Other specified disorders of veins
CPT/HCPCS: 74018

== ENCOUNTER → 2024-07-28 08:45 | Outpatient (CLI) | payer MEDICARE, OTHER, SELFPAY ==
--- NOTE | 2024-07-28 09:18 | DIAB.MNTFU ---
Follow-up Diabetes Medical Nutrition Therapy Assessment Name: Taras Moon Date: 07/28/23 Time: 9940 Dx: Type II Diabetes Provider: Katlin Zuniga presents for Dm follow-up. Much improved lows, though more elevations recently due to diet. Sweets and cakes finished last week. Reports excessive CHO with holiday eating. Insurance is covering Dexcom G7. using juice when having lows. Some recent CGM sensor issues. Has Dexcom contact and knows how to contact them prn. Taking higher dose of glipizide recently due to elevations, plans to reduce this has BG comes down over the next two weeks. Reports recent kidney stones, been working on hydration. Diet Recall: : 1 protein pancake 6 put some oats in it with butter and little sf syrup, johnson, and egg 2-230p: half sandwich on sourdough bread, lunch meat, cheese, lettuce, tomato, vernon, mustard, pickle slices 630p: nothing or nonstarchy veggies steamed with parmesan cheese, hamburger татьяна OR chili, hot dog, one bun OR protein with mashed potatoes and veggies 20oz x3 water 16oz coffee black Anthropometrics: Ht: 6'4 Wt: 248# 06/2024 Physical Activity: None lately due to access with holiday boxes. Plans to get back to it. Recumbent bike q other day for 15 mins. Plans to slowly increase. Self-Monitoring Blood Glucose: No more lows but much more hyperglycemia, which he attributes to recent eating. Today TIR: 4% very high 42% high 54% in range 0% low 0 very low 180mg/dl avg GMI: 7.6% std dev: 38 mg/dl variation: 21% Last Visit TIR: 1% very high 18% high 79% in range 2% low <1 very low 143mg/dl avg GMI: 6.7% std dev: 40 mg/dl variation: 29.5% Diabetes Medications: 5-10mg Glipizide BID 2500mg Metformin daily Pertinent Labs: HgA1c: 11.5% 01/2024 6.9% 04/2024 Past Medical History: (Last Reviewed 05/12/24 @ 17:55 by Juventino Desir DO) Benign non-nodular prostatic hyperplasia with lower urinary tract symptoms (12/26/15) Bigeminy Calculus of kidney Cataract of both eyes (08/19/16) Diabetes (Unknown) Diabetes type 2, uncontrolled Diabetic foot ulcers (Unknown) Diabetic macular edema (Unknown) Diabetic neuropathy (Unknown) Diabetic polyneuropathy associated with type 2 diabetes mellitus (12/26/15) Essential hypertension (06/27/15) History of deep venous thrombosis (04/14/15) History of diabetic ulcer of foot (12/26/15) History of DVT (deep vein thrombosis) (~2012) w/ shana pulm embolism History of hepatitis B (1964) History of pulmonary embolism (04/14/15) Hx pulmonary embolism (~2012) shana. w/ DVT Hyperlipemia (Unknown) Hypertension (Unknown) Kidney stones (~07/2014) Passed stones recently Macular edema (04/14/15) Mixed hyperlipidemia (06/27/15) Obstructive sleep apnea syndrome (04/14/15) Rosacea (Unknown) Type 2 diabetes mellitus with diabetic polyneuropathy (06/27/15) Nutrition Rx: Carbohydrates: Meal: 45g Snack: 15-30g Nutrition Diagnosis: - Nutrition and food related knowledge deficit r/t limited nutrition education aeb pt report and treating lows with chocolate- improved - Predicted excessive CHO intake r/t holiday eating aeb pt report - new Intervention: This participant was very receptive. Provided appropriate educational handouts. Discussed the following topics: Impact of sweets on BG recently medication management Fluid recs BG goals for TIR Physcial activity Created SMART goals for patient self-care and success. Goals: Eat q 3-5 hours- not met use juice to treat lows- met Avoid sweets- new Restart bike- new Follow-up: ARTHUR SOSA follow-up prn per pt request. Encouraged him to call for f/u if BG do not improve over the next couple weeks. He agreed. Lilia Chu, ARTHUR, IAN Certified Diabetes Care and Coding Compliance Manager P: [phone] Thank you for this referral
== END ==
LOC: DIET 08:46
PROVIDERS: PCP Internal Medicine; Referring Provider Internal Medicine
DX: E11.65 Type 2 diabetes mellitus with hyperglycemia (principal); Z71.3 Dietary counseling and surveillance; Z79.84 Long term (current) use of oral hypoglycemic drugs
CPT/HCPCS: 97803

== ENCOUNTER → 2024-09-29 06:52 | Outpatient (CLI) | payer MEDICARE, OTHER, SELFPAY ==
[2024-09-29 07:59] LABS: Hemoglobin A1C% w Est Avg Glu 6.9 % (4.0-6.0)
[2024-09-29 08:13] LABS: Alanine Aminotransferase 20 IU/L (<50); Albumin 4.2 g/dL (3.5-5.0); Albumin Globulin Ratio 1.7 (1.0-2.8); Alkaline Phosphatase 89 U/L (38-126); Aspartate Aminotransferase 24 IU/L (17-59); BUN Creatinine Ratio 21.9 (6-22); Bilirubin Total 0.8 mg/dL (0.2-1.3); Blood Urea Nitrogen 23 mg/dL (9-20); Calcium 9.7 mg/dL (8.4-10.2); Carbon Dioxide 25 mmol/L (22-32); Chloride 105 mmol/L (98-107); Cholesterol 120 mg/dL (140-199); Estimated Glomerular Filt Rate > 60 mL/min (>60); Globulin 2.5 g/dL (1.7-4.1); Glucose 113 mg/dL (80-110); HDL Cholesterol 56 mg/dL (40-60); HEMOLYSIS < 15 (0-50); LDL Cholesterol Calculated 46 mg/dL (<100); Sodium 138 mmol/L (137-145); Total Protein 6.7 g/dL (6.3-8.2); Triglycerides 91 mg/dL (35-150)
[2024-09-29 08:15] LABS: Potassium 5.5 mmol/L (3.4-5.1)
== END ==
PROVIDERS: PCP Internal Medicine; Referring Provider Internal Medicine; Visit Provider Internal Medicine
DX: E11.42 Type 2 diabetes mellitus with diabetic polyneuropathy (principal); E78.2 Mixed hyperlipidemia; I10 Essential (primary) hypertension
CPT/HCPCS: 36415; 80053; 80061; 83036

== ENCOUNTER → 2024-12-01 06:55 | Outpatient (CLI) | payer MEDICARE, OTHER, SELFPAY ==
--- NOTE | 2024-12-01 06:58 | DI.RAD.S_ITS ---
PROCEDURE: XR KUB INDICATIONS: h/o nephrolithiasis TECHNIQUE: One view of the abdomen acquired. COMPARISON: [facility], , XR KUB, 06/04/2024, 10:20. FINDINGS: Surgical changes and devices: None. Bowel: Bowel gas pattern is normal. Soft tissues: 7 millimeter calcification projecting over the lower pole of the left renal shadow is stable in position. Numerous phleboliths projecting over the lower pelvis are stable. Visualized solid organ contours appear normal in size. Bones: No suspicious bony lesions. Spine degenerative disc disease and facet arthropathy. IMPRESSION: Stable possible 7 millimeter left renal stone. Consider CT KUB for additional evaluation. Dictated by: Tricia Son MD, PhD on 12/01/2024 at 12:04 Approved by: Tricia Son MD, PhD on 12/01/2024 at 12:06
== END ==
LOC: RAD 06:57
PROVIDERS: PCP Internal Medicine; Referring Provider Urology; Visit Provider Urology
DX: N20.0 Calculus of kidney (principal); N40.1 Benign prostatic hyperplasia with lower urinary tract symptoms; Z87.442 Personal history of urinary calculi
CPT/HCPCS: 74018

== ENCOUNTER → 2025-03-30 07:11 | Outpatient (CLI) | payer MEDICARE, OTHER, SELFPAY ==
[2025-03-30 07:58] LABS: Hemoglobin A1C% w Est Avg Glu 6.8 % (4.0-6.0)
[2025-03-30 08:05] LABS: Alanine Aminotransferase 17 IU/L (<50); Albumin 4.2 g/dL (3.5-5.0); Albumin Globulin Ratio 1.8 (1.0-2.8); Alkaline Phosphatase 81 U/L (38-126); Blood Urea Nitrogen 23 mg/dL (9-20); Calcium 9.4 mg/dL (8.4-10.2); Carbon Dioxide 25 mmol/L (22-32); Chloride 108 mmol/L (98-107); Cholesterol 114 mg/dL (140-199); Estimated Glomerular Filt Rate > 60 mL/min (>60); Globulin 2.3 g/dL (1.7-4.1); Glucose 117 mg/dL (70-99); HDL Cholesterol 52 mg/dL (40-60); HEMOLYSIS 21 (0-50); Potassium 5.0 mmol/L (3.4-5.1); Sodium 139 mmol/L (137-145); Total Protein 6.5 g/dL (6.3-8.2); Triglycerides 94 mg/dL (35-150)
== END ==
PROVIDERS: PCP Internal Medicine; Referring Provider Internal Medicine; Visit Provider Internal Medicine
DX: E11.42 Type 2 diabetes mellitus with diabetic polyneuropathy (principal); E78.2 Mixed hyperlipidemia; I10 Essential (primary) hypertension
CPT/HCPCS: 36415; 80053; 80061; 83036